=== PATIENT | female | born 1950 | race Caucasian/White ===

== ENCOUNTER → 2016-09-15 | Outpatient (REF) | payer MEDICARE, MEDICAID ==
[2016-09-15 16:53] LABS: ALBUMIN 3.8 GM/DL (3.2-5.2); ALBUMIN/GLOBULIN RATIO 1.15 (1.00-1.93); ALKALINE PHOSPHATASE 76 U/L (45-117); ALT/SGPT 15 U/L (12-78); ANION GAP 5 MEQ/L (8-16); AST/SGOT 11 U/L (15-37); BILIRUBIN,TOTAL 0.3 MG/DL (0.2-1.0); BLOOD UREA NITROGEN 11 MG/DL (7-18); CALCIUM LEVEL 8.6 MG/DL (8.8-10.2); CARBON DIOXIDE LEVEL 28 MEQ/L (21-32); CHLORIDE LEVEL 106 MEQ/L (98-107); CHOLESTEROL LEVEL 178 MG/DL (<200); CREATININE FOR GFR 0.66 MG/DL (0.55-1.02); GLOMERULAR FILTRATION RATE > 60.0 (>45); GLUCOSE, FASTING 110 MG/DL (80-110); POTASSIUM SERUM 3.8 MEQ/L (3.5-5.1); SODIUM LEVEL 139 MEQ/L (136-145); TOTAL PROTEIN 7.1 GM/DL (6.4-8.2); TRIGLYCERIDES LEVEL 83 MG/DL (<150)
== END ==
LOC: M SFHCPLAZ 13:01
PROVIDERS: ATTEND Family Medicine
DX: E11.65 Type 2 diabetes mellitus with hyperglycemia (principal); E78.5 Hyperlipidemia, unspecified; I10 Essential (primary) hypertension; E03.9 Hypothyroidism, unspecified
CPT/HCPCS: 36415; 80053; 80061; 83036; 84443; G0463

== ENCOUNTER → 2016-12-08 | Outpatient (CLI) | payer MEDICARE, MEDICAID ==
[2016-12-08 14:04] LABS: ANION GAP 8 MEQ/L (8-16); BLOOD UREA NITROGEN 13 MG/DL (7-18); CARBON DIOXIDE LEVEL 27 MEQ/L (21-32); CHLORIDE LEVEL 100 MEQ/L (98-107); CREATININE FOR GFR 0.87 MG/DL (0.55-1.02); GLOMERULAR FILTRATION RATE > 60.0 (>45); POTASSIUM SERUM 4.9 MEQ/L (3.5-5.1); SODIUM LEVEL 135 MEQ/L (136-145)
[2016-12-08 14:23] LABS: GLUCOSE, FASTING 459 MG/DL (80-110)
== END ==
LOC: M WUC 12:03
PROVIDERS: ATTEND Internal Medicine Endocrinology, Diabetes & Metabolism
DX: E10.9 Type 1 diabetes mellitus without complications (principal); E03.9 Hypothyroidism, unspecified; I10 Essential (primary) hypertension

== ENCOUNTER → 2017-02-20 | Outpatient (CLI) | payer MEDICARE, MEDICAID ==
--- NOTE | 2017-02-20 13:40 | REP ---
Left shoulder two views: There is a humeral head fracture at the base of the humeral tuberosities. I suspect there is a cyst in the proximal shaft of the humerus. There is no dislocation. The acromioclavicular joint is unremarkable. Signed by Tom Linton MD 02/20/2017 01:31 P
== END ==
LOC: M WUC 12:50
PROVIDERS: ATTEND Physician Assistant
DX: S40.012A Contusion of left shoulder, initial encounter (principal); S40.022A Contusion of left upper arm, initial encounter; S50.02XA Contusion of left elbow, initial encounter; X58.XXXA Exposure to other specified factors, initial encounter; Y92.89 Other specified places as the place of occurrence of the external cause; Y99.9 Unspecified external cause status; Y93.9 Activity, unspecified

== ENCOUNTER → 2017-03-25 | Outpatient (CLI) | payer MEDICARE, MEDICAID ==
[~2017-03-25] MED LIST: PROHANCE 279.3MG/ML 15ML VIAL (A9576) As Ordered ONE; PROHANCE 279.3MG/ML 5ML VIAL (A9576) As Ordered ONE
--- NOTE | 2017-03-25 18:36 | REP ---
MRA CAROTIDS WITHOUT AND WITH CONTRAST: HISTORY: Carotid stenosis. CONTRAST: ProHance 25 mL Unenhanced 3D TOF and contrast enhanced MR angiography were performed at the level of the carotid bifurcations. There is mild stenosis of 10% of the right internal carotid artery 6 mm from its origin. The origin of the right external carotid artery is normal. There is moderate stenosis of 65% of the left internal carotid artery at its origin. The origin of the left external carotid artery is normal. The vertebral arteries are equal in size and patent. IMPRESSION: 1. Mild stenosis of 10% of the right internal carotid artery at its origin. 2. Moderate stenosis of 65% of the left internal carotid artery at its origin. Signed by Rob Rodriguez MD 03/26/2017 08:29 A
== END ==
LOC: M RAD 10:57
PROVIDERS: ATTEND Surgery Vascular Surgery
DX: I65.23 Occlusion and stenosis of bilateral carotid arteries (principal)
CPT/HCPCS: 70549; A9576

== ENCOUNTER → 2017-05-05 | Outpatient (CLI) | payer MEDICARE, MEDICAID ==
--- NOTE | 2017-05-06 14:34 | REP ---
Clinical: Lung screening. History smoking. Comparison: None Technique: Axial low-dose noncontrast images from the thoracic inlet to the upper abdomen using lung screening technique. Findings: The lung reid are well-aerated. Biapical scarring, fibro atelectatic changes and moderate emphysematous changes are appreciated. No discrete consolidation, obvious focal nodule or mass lesion is identified. No pleural effusion/reaction or pneumothorax. Tracheobronchial tree is patent. Impression: Biapical and upper lobe changes as described above. No obvious pulmonary nodule or mass lesion is appreciated. Reevaluation and continued follow-up should be based on consultation with [employer]. Signed by Kyle Fournier MD 05/06/2017 01:52 A
== END ==
LOC: M RAD 10:32
PROVIDERS: ATTEND Family Medicine
DX: Z12.2 Encounter for screening for malignant neoplasm of respiratory organs (principal); F17.210 Nicotine dependence, cigarettes, uncomplicated

== ENCOUNTER → 2017-12-01 | Outpatient (REF) | payer MEDICARE, OTHER | LOC: M LAB REF 11:06 | DX: N39.0 Urinary tract infection, site not specified (principal) | CPT/HCPCS: 87186 ==

== ENCOUNTER → 2019-01-11 | Outpatient (CLI) | payer MEDICARE, MEDICAID ==
--- NOTE | 2019-01-11 15:48 | REPMRS ---
Patient History The patient states she has not had a clinical breast exam in over a year. Family history of breast cancer in maternal grandmother. 3D TOMOSYNTHESIS WAS PERFORMED. [facility] lifetime risk for [facility] cancer [facility] 3.4%. Digital Woman Screen Mammo: January 11, 2019 - Exam #: [id number] Bilateral CC and MLO view(s) were taken. Technologist: Marah Still, Technologist Prior study comparison: March 27, 2015, digital woman screen mammo performed at [facility]. August 17, 2013, digital woman screen mammo performed at [facility]. FINDINGS: There are scattered fibroglandular densities. There has been no change in the appearance of the mammogram from the prior studies. There is a mild amount of residual fibroglandular tissue which is fairly symmetric. There is no interval development of dominant mass, architectural distortion, or clustered microcalcification suggestive of malignancy. Assessment: BI-RADS/ACR category 1 mammogram. Negative Mammogram. Recommendation Routine screening mammogram in 1 year (for women over age 40). This mammogram was interpreted with the aid of an FDA-approved computer-aided dectection system. Electronically Signed By: Tom Thornton MD 01/11/19 [id number]
== END ==
LOC: M WHC 14:24
PROVIDERS: ATTEND Family Medicine
DX: Z12.31 Encounter for screening mammogram for malignant neoplasm of breast (principal)

== ENCOUNTER → 2019-10-13 | Outpatient (REF) | payer MEDICARE, MEDICAID ==
[2019-10-13 14:03] LABS: BLOOD UREA NITROGEN 17 MG/DL (7-18); CARBON DIOXIDE LEVEL 28 MEQ/L (21-32); CHLORIDE LEVEL 104 MEQ/L (98-107); CREATININE FOR GFR 0.82 MG/DL (0.55-1.30); GLOMERULAR FILTRATION RATE > 60.0 (>45); GLUCOSE, FASTING 195 MG/DL (70-100); POTASSIUM SERUM 4.4 MEQ/L (3.5-5.1); SODIUM LEVEL 141 MEQ/L (136-145)
== END ==
LOC: M SFHCPLAZ 10:47
PROVIDERS: ATTEND Family Medicine
DX: M81.0 Age-related osteoporosis without current pathological fracture (principal)

== ENCOUNTER → 2020-03-06 | Outpatient (REF) | payer MEDICARE, MEDICAID | LOC: M WUC 15:09 | PROVIDERS: ATTEND Nurse Practitioner Family | DX: N39.0 Urinary tract infection, site not specified (principal) ==

== ENCOUNTER → 2020-03-21 | Outpatient (REF) | payer MEDICARE, MEDICAID | LOC: M SFHCPLAZ 12:34 | PROVIDERS: ATTEND Family Medicine | DX: M81.0 Age-related osteoporosis without current pathological fracture (principal); E03.9 Hypothyroidism, unspecified ==

== ENCOUNTER → 2020-03-21 | Outpatient (CLI) | payer MEDICARE, MEDICAID ==
[2020-03-21 11:57] LABS: BLOOD UREA NITROGEN 9 MG/DL (7-18); CALCIUM LEVEL 9.7 MG/DL (8.8-10.2); CARBON DIOXIDE LEVEL 30 MEQ/L (21-32); CHLORIDE LEVEL 104 MEQ/L (98-107); CREATININE FOR GFR 0.74 MG/DL (0.55-1.30); FREE T4 1.55 NG/DL (0.76-1.46); GLOMERULAR FILTRATION RATE > 60.0 (>39); GLUCOSE, FASTING 117 MG/DL (70-100); PHOSPHORUS LEVEL 3.1 MG/DL (2.5-4.9); POTASSIUM SERUM 4.5 MEQ/L (3.5-5.1); SODIUM LEVEL 138 MEQ/L (136-145)
== END ==
LOC: M PLALAB 08:49
PROVIDERS: ATTEND Family Medicine
DX: M81.0 Age-related osteoporosis without current pathological fracture (principal); E03.9 Hypothyroidism, unspecified; Z23 Encounter for immunization
CPT/HCPCS: 36415; 80048; 83735; 84100; 84439; 84443; 90682; G0008; G0463

== ENCOUNTER → 2020-10-03 | Outpatient (CLI) | payer MEDICARE, MEDICAID ==
--- NOTE | 2020-10-03 10:46 | REPPI ---
INDICATION: M25.552 PAIN IN LEFT HIP COMPARISON: None. TECHNIQUE: AP and frog-lateral views of the left hip FINDINGS: Generalized age-related changes include subtle increased sclerosis to the acetabulum with minimal joint space narrowing. No further overt osteoarthritic or significant degenerative changes are appreciated. No evidence for acute or healed injury. Surrounding soft tissues are normal. IMPRESSION: Mild generalized age-related changes. <Electronically signed by Kyle Fournier > 10/03/20 104
== END ==
LOC: M PLAIMG 09:56
PROVIDERS: ATTEND Family Medicine
DX: M25.552 Pain in left hip (principal)
CPT/HCPCS: 73502; G0463

== ENCOUNTER → 2020-10-10 | Outpatient (CLI) | payer MEDICARE, MEDICAID ==
--- NOTE | 2020-10-10 10:27 | REP ---
INDICATION: ENCOUNTER FOR SCREENING FOR LUNG CA. COMPARISON: Comparison study May 05, 2017.. TECHNIQUE: Dose reduction was performed utilizing CARE dose with automated adjustment of the kV and MAS according to patient size; iterative reconstruction, automated exposure control, as well as adaptive dose shielding. Helical scanning is acquired and 3 mm axial images are generated at lung windows. FINDINGS: There is moderate biapical pleuroparenchymal fibrosis and bilateral upper lobe emphysematous change again noted. There is a stable 3 mm nodule adjacent to the posterolateral pleural surface of the right lower lobe. This is seen on page 45 of 107 today's study. This is felt to be unchanged allowing for slight differences in slice position. No new nodule or pulmonary mass lesion is appreciated. No infiltrate is seen. There is some vascular calcification. A small sliding hiatal hernia is seen. IMPRESSION: Lung RADS category 1 findings. Repeat screening study recommended in 1 year. <Electronically signed by Preet Vega > 10/10/20 1024
== END ==
LOC: M RAD 09:51
PROVIDERS: ATTEND Family Medicine
DX: Z12.2 Encounter for screening for malignant neoplasm of respiratory organs (principal); R91.1 Solitary pulmonary nodule; K44.9 Diaphragmatic hernia without obstruction or gangrene; F17.210 Nicotine dependence, cigarettes, uncomplicated

== ENCOUNTER → 2020-10-17 | Outpatient (CLI) | payer MEDICARE, MEDICAID ==
--- NOTE | 2020-10-17 10:42 | DEXAMM ---
INDICATION: M81.0 AGE RELATED OSTEOPOROSIS. COMPARISON: 10/31/2015 as well as other prior exams. TECHNIQUE: Bone density was measured using dual-energy x-ray absorptiometry (DEXA). FINDINGS: AP SPINE L1-L4 BMD 0.829 g/cm2 Young Adult T-Score -2.9 Age Matched Z-Score -1.3. LT FEMUR, TOTAL BMD 0.671 g/cm2 Young Adult T-Score -2.7 Age Matched Z-Score -1.2. LT NECK BMD 0.675 g/cm2 Young Adult T-Score -2.6 Age Matched Z-Score -0.9. RT FEMUR, TOTAL BMD 0.688 g/cm2 Young Adult T-Score -2.5 Age Matched Z-Score -1.0. RT NECK BMD 0.631 g/cm2 Young Adult T-Score -2.9 Age Matched Z-Score -1.2. IMPRESSION: There is osteoporosis of the spine. There is osteoporosis of the left hip. There is osteoporosis of the right hip. The density of the spine has increased 11.7% since the initial exam on 11/11/2006. The density of the spine increased 5.2% since most recent exam on 10/31/2015. The density of the left hip has not changed since initial exam on 11/11/2006. The density of the left hip has increased 3.1% since most recent exam on 10/31/2015. The density of the right hip has increased 2.2% since the initial exam on 11/11/2006. The density of the right hip has increased 5.2% since the most recent exam on 10/31/2015. FOLLOW-UP: Recommendation for the next bone density exam: 2 years. <Electronically signed by Tom Thornton > 10/17/20 1038
== END ==
LOC: M WHC 09:08
PROVIDERS: ATTEND Internal Medicine Endocrinology, Diabetes & Metabolism
DX: M81.0 Age-related osteoporosis without current pathological fracture (principal)

== ENCOUNTER → 2021-03-09 | Outpatient (CLI) | payer MEDICARE, MEDICAID ==
[~2021-03-09] MED LIST changes: +BUPR150T12 PO; +CLOP75TA2 PO; +ICOS1CAP PO; +LEVO112T2 PO; +LISI-898 PO; -PROHANCE 279.3MG/ML 15ML VIAL (A9576) As Ordered ONE; -PROHANCE 279.3MG/ML 5ML VIAL (A9576) As Ordered ONE; +ROSU40TA4 PO; +TOUJ1.2I SC
== END ==
LOC: M LABSMTC 11:14
PROVIDERS: ATTEND Anesthesiology
DX: Z01.812 Encounter for preprocedural laboratory examination (principal); Z20.822 Contact with and (suspected) exposure to COVID-19

== ENCOUNTER 2021-03-14 06:58 | Day surgery (SDC) | payer MEDICARE, MEDICAID ==
[~2021-03-14] VITALS: Ht 152.4 cm; Wt 60.3 kg
[~2021-03-14 06:58] MED LIST changes: +NS 1,000 ML IV ONE
--- OUTSIDE RECORDS SUMMARY | 2021-03-14 07:03 | CCD | Continuity of Care Document ---
Author Author [facility] Organization Unknown Address [address] [place] [id number] Phone Unavailable Care Team Providers [employer] Name Role Phone Kyle Licona M.D. [employer] [phone] Jayjay Roman M.D. [employer] [phone] Meenakshi Hair M.D. [employer] Problems Active Problems Provider Date Essential hypertension Joel Lucas M.D. Onset: 7 Hyperlipidemia Joel Lucas M.D. Onset: 03/10/2017 Carotid artery occlusion Joel Lucas M.D. Onset: 017 Social History Type Date Description Comments Sex Unknown Tobacco Use Reviewed: 02/17/19 currently smokes 1/2 Pack [place] Smoking Status Reviewed: 02/17/19 currently smokes 1/2 Pack [place] ETOH Use Occasionally consumes alcohol Tobacco Use Reviewed: 01/07/19 Patient is a current smoker, smokes every day Allergies and adverse reactions Active Allergies Criticality Reaction | Severity Comments Date Lipitor Unable to assess criticality myalgia 03/11/2017 Penicillin Unable to assess criticality sob 03/11/2017 Bee Sting Unable to assess criticality Anaphylaxis 03/11/2017 Seafood Unable to assess criticality sob 03/11/2017 Medications Active Medications SIG Qnty Indications Ordering Provide r Date Plavix 75mg Tablets take 1 tablet by mouth every day 90tabs Joel Lucas M.D. 11/19/2018 Vitamin D 2000Unit Tablets 1 by mouth every day Unknown Calcium/Magnesium/Zinc Tablets qd Unknown Cranberry qd Unknown Acetaminophen 325mg Tablets p rn Unknown Hair/Skin/Nails Capsules qd Unknown Vitamin E qd Unknown Prolia 60mg/ml Solution sq every six months Unknown Colace 100mg Capsules qd Unknown Bupropion HCL ER (XL) 150mg Tablets ER 24HR every day Unknown Lisinopril 2.5mg Tablets qd Unknown Humalog 100Unit/ML Solution s s Unknown Folic Acid 1mg Tablets 1 by mouth every day Unknown Aspir-[address] 1 by mouth every day Unknown Rosuvastatin Calcium 40mg Tablets take 1 tablet by mouth at bedtime Unknown Levothyroxine Sodium 112mcg Tablets qd Unknown Toujeo Solostar 300U nit/ML Solution Pen-Inject as directed Unknown Immunizations CPT Code Status Date Vaccine Lot # [id number] Given 02/19/2017 Zoster Shingles Vaccine For Subcutaneous Injection [id number] Given 02/18/2017 Pneumococcal Vaccine 2Yrs Or Older Vital Signs Date Vital Result Comment 03/06/2021 10:37am BP Systolic Right Arm 138 mmHg BP Diastolic Right Arm 68 mmHg BP Systolic Left Arm 130 mmHg BP Diastolic Left Arm 68 mmHg Body Temperature 94.3 F Height 56 inches 4'8" Weight 132.00 lb Weight 59.875 kg BMI (Body Mass Index) 29.6 kg/m2 02/28/2020 2:48pm BP Systolic Right Arm 160 mmHg BP Diastolic Right Arm 70 mmHg Height 60 inches 5'0" Weight 127.00 lb Weight 57.607 kg BMI (Body Mass Index) 24.8 kg/m2 Results Description No Information Available Procedures Date Code Description Status 03/06/2021 00311 Duplex Scan Extracranial Arterie s, Complete Bilateral Study Completed Medical Devices Description No Information Available Encounters Description No Information Available Assessments Date Code Description Provider 03/06/2021 I65.23 Occlusion and stenosis of bilate ral carotid arteries Joel Lucas M.D. 03/06/2021 I65.23 Occlusion and stenosis of bilate ral carotid arteries [facility] 03/06/2021 Z48.812 Encounter for surgic al aftercare following surgery on the circulatory system Joel Lucas M.D. 03/06/2021 Z48.812 Encounter for surgic al aftercare following surgery on the circulatory system [facility] Plan of Treatment Future Appointment(s):* 03/13/2022 11:00 am - Joel Lucas M.D. at Main Office * 03/13/2022 10:30 am - [facility] at Main Office 02/17/2019 - Joel Lucas M.D.* I65.22 Occlusion and stenosis of left carotid artery * Z48.812 Encntr for surgical aftcr following surgery on the circ sys * I10 Essential (primary) hypertension * * Follow up:* 6 MONTH OV/US/ CAROTID LEFT/ Functional Status Description No Information Available Mental Status Description No Information Available Referrals Description No Information Available
--- OUTSIDE RECORDS SUMMARY | 2021-03-14 07:04 | CCD ---
Author Author [facility] Organization [facility] Address Unknown Phone Unavailable Care Team Providers Care Milk Route Deliverer Name Role Phone Garces, Kalyn 1 YEAR OLDS PRESCHOOL TEACHER Unavailable Unavailable Garces, Kalyn 2 YEAR OLDS PRESCHOOL TEACHER Unavailable Unavailable Garces, Kalyn 2 YEAR OLDS PRESCHOOL TEACHER Unavailable Unavailable Garces, Kalyn 2 YEAR OLDS PRESCHOOL TEACHER Unavailable Unavailable Garces, Kalyn 2 YEAR OLDS PRESCHOOL TEACHER Unavailable Unavailable Garces, Kalyn 2 YEAR OLDS PRESCHOOL TEACHER Unavailable Unavailable Garces, Kalyn 2 YEAR OLDS PRESCHOOL TEACHER Unavailable Unavailable Garces, Kalyn 2 YEAR OLDS PRESCHOOL TEACHER Unavailable Unavailable Garces, Kalyn 2 YEAR OLDS PRESCHOOL TEACHER Unavailable Unavailable Garces, Kalyn 2 YEAR OLDS PRESCHOOL TEACHER Unavailable Unavailable Garces, Kalyn 2 YEAR OLDS PRESCHOOL TEACHER Unavailable Unavailable Garces, Kalyn 2 YEAR OLDS PRESCHOOL TEACHER Unavailable Unavailable Garces, Kalyn 2 YEAR OLDS PRESCHOOL TEACHER Unavailable Unavailable Simione-Albino, Carol PA Unavailable Unavailable Simione-Albino, Carol PA Unavailable Unavailable Simione-Albino, Carol PA Unavailable Unavailable Simione-Albino, Carol PA Unavailable Unavailable Simione-Albino, Carol PA Unavailable Unavailable Simione-Albino, Carol PA Unavailable Unavailable Simione-Albino, Carol PA Unavailable Unavailable Simione-Albino, Carol PA Unavailable Unavailable Simione-Albino, Carol PA Unavailable Unavailable Simione-Albino, Carol PA Unavailable Unavailable Simione-Albino, Carol PA Unavailable Unavailable Simione-Albino, Carol PA Unavailable Unavailable Simione-Albino, Carol PA Unavailable Unavailable Simione-Albino, Carol PA Unavailable Unavailable Simione-Albino, Carol PA Unavailable Unavailable Simione-Albino, Carol PA Unavailable Unavailable Simione-Albino, Carol PA Unavailable Unavailable Simione-Albino, Carol PA Unavailable Unavailable Simione-Albino, Carol PA Unavailable Unavailable Simione-Albino, Carol PA Unavailable Unavailable Simione-Albino, Carol PA Unavailable Unavailable Simione-Albino, Carol PA Unavailable Unavailable Simione-Albino, Carol PA Unavailable Unavailable Simione-Albino, Carol PA Unavailable Unavailable Simione-Albino, Carol PA Unavailable Unavailable Simione-Albino, Carol PA Unavailable Unavailable Simione-Albino, Carol PA Unavailable Unavailable Simione-Albino, Carol PA Unavailable Unavailable Simione-Albino, Carol PA Unavailable Unavailable Simione-Albino, Carol PA Unavailable Unavailable Simione-Albino, Carol PA Unavailable Unavailable Simione-Albino, Carol PA Unavailable Unavailable Simione-Albino, Carol PA Unavailable Unavailable Afsaneh FREITAS MD Unavailable Unavailable GENAfsaneh ARANDA MD Unavailable Unavailable GENAfsaneh ARANDA MD Unavailable Unavailable GENAfsaneh ARANDA MD Unavailable Unavailable GENAfsaneh ARANDA MD Unavailable Unavailable GENAfsaneh ARANDA MD Unavailable Unavailable GENAfsaneh ARANDA MD Unavailable Unavailable GENAfsaneh ARANDA MD Unavailable Unavailable Afsaneh FREITAS MD Unavailable Unavailable Afsaneh FREITAS MD Unavailable Unavailable Afsaneh FREITAS MD Unavailable Unavailable GENAfsaneh ARANDA MD Unavailable Unavailable Afsaneh FREITAS MD Unavailable Unavailable Afsaneh FREITAS MD Unavailable Unavailable Afsaneh FREITAS MD Unavailable Unavailable GENAfsaneh ARANDA MD Unavailable Unavailable GENAfsaneh ARANDA MD Unavailable Unavailable Afsaneh FREITAS MD Unavailable Unavailable Afsaneh FREITAS MD Unavailable Unavailable Afsaneh FREITAS MD Unavailable Unavailable Afsaneh FREITAS MD Unavailable Unavailable Afsaneh FREITAS MD Unavailable Unavailable Afsaneh FREITAS MD Unavailable Unavailable Afsaneh FREITAS MD Unavailable Unavailable Afsaneh FREITAS MD Unavailable Unavailable Afsaneh FREITAS MD Unavailable Unavailable GENDZIXIAO, Afsaneh LIU MD Unavailable Unavailable GENDZIXIAO, Afsaneh LIU MD Unavailable Unavailable GENDZIXIAO, Afsaneh LIU MD Unavailable Unavailable GENDZIXIAO, Afsaneh LIU MD Unavailable Unavailable GENDZIXIAO, Afsaneh LIU MD Unavailable Unavailable GENDZIXIAO, Afsaneh LIU MD Unavailable Unavailable GENDZIXIAO, Afsaneh LIU MD Unavailable Unavailable GENDZIXIAO, Afsaneh LIU MD Unavailable Unavailable GENDZIXIAO, Afsaneh LIU MD Unavailable Unavailable GENDZIXIAO, Afsaneh LIU MD Unavailable Unavailable GENDZIXIAO, Afsaneh LIU MD Unavailable Unavailable GENDZIXIAO, Afsaneh LIU MD Unavailable Unavailable GENDZIXIAO, Afsaneh LIU MD Unavailable Unavailable GENDZIXIAO, Afsaneh LIU MD Unavailable Unavailable GENDZIXIAO, Afsaneh LIU MD Unavailable Unavailable GENDZIXIAO, Afsaneh LIU MD Unavailable Unavailable GENDZIXIAO, Afsaneh LIU MD Unavailable Unavailable GENDZIXIAO, Afsaneh LIU MD Unavailable Unavailable GENDZIXIAO, Afsaneh LIU MD Unavailable Unavailable GENDZIXIAO, Afsaneh LIU MD Unavailable Unavailable GENDZIXIAO, Afsaneh LIU MD Unavailable Unavailable GENDDAVID, Afsaneh LIU MD Unavailable Unavailable GENDZIXIAO, Afsaneh LIU MD Unavailable Unavailable GENDZIXIAO, Afsaneh LIU MD Unavailable Unavailable GENDDAVID, Afsaneh LIU MD Unavailable Unavailable GENDZIXIAO, Afsaneh LIU MD Unavailable Unavailable GENDAfsaneh HERNANDEZ MD Unavailable Unavailable GENDAfsaneh HERNANDEZ MD Unavailable Unavailable GENDZIAfsaneh HAGEN MD Unavailable Unavailable GENDAfsaneh HERNANDEZ MD Unavailable Unavailable GENDZIAfsaneh HAGEN MD Unavailable Unavailable GENDAfsaneh HERNANDEZ MD Unavailable Unavailable GENDZIAfsaneh HAGEN MD Unavailable Unavailable GENDZIAfsaneh HAGEN MD Unavailable Unavailable GENDZIAfsaneh HAGEN MD Unavailable Unavailable GENDZIAfsaneh HAGEN MD Unavailable Unavailable GENDZIAfsaneh HAGEN MD Unavailable Unavailable GENDZIAfsaneh HAGEN MD Unavailable Unavailable GENDZIELEАННА, Afsaneh LIU MD Unavailable Unavailable GENDZIELEАННА, Afsaneh LIU MD Unavailable Unavailable GENDZIELEАННА, Afsaneh LIU MD Unavailable Unavailable GENDZIELEАННА, Afsaneh LIU MD Unavailable Unavailable GENDZIELEАННА, Afsaneh LIU MD Unavailable Unavailable GENDZIELEАННА, Afsaneh LIU MD Unavailable Unavailable GENDZIELEАННА, Afsaneh LIU MD Unavailable Unavailable GENDZIELEАННА, Afsaneh LIU MD Unavailable Unavailable GENDZIELEАННА, Afsaneh LIU MD Unavailable Unavailable GENDZIELEАННА, Afsaneh LIU MD Unavailable Unavailable GENDZIELEАННА, Afsaneh LIU MD Unavailable Unavailable GENDZIXIAO, Afsaneh LIU MD Unavailable Unavailable GENDZIELEАННА, Afsaneh LIU MD Unavailable Unavailable GENDZIELEАННА, Afsaneh LIU MD Unavailable Unavailable GENDZIXIAO, Afsaneh LIU MD Unavailable Unavailable GENDZIXIAO, Afsaneh LIU MD Unavailable Unavailable GENDZIXIAO, Afsaneh LIU MD Unavailable Unavailable GENDZIXIAO, Afsaneh LIU MD Unavailable Unavailable GENDZIELEАННА, Afsaneh LIU MD Unavailable Unavailable GENDZIELEАННА, Afsaneh LIU MD Unavailable Unavailable GENDZIXIAO, Afsaneh LIU MD Unavailable Unavailable PRITESH, MCKINLEY PA Unavailable Unavailable PRITESH, MCKINLEY PA Unavailable Unavailable PRITESH, MCKINLEY PA Unavailable Unavailable PRITESH, MCKINLEY PA Unavailable Unavailable PRITESH, MCKINLEY PA Unavailable Unavailable PRITESH, MCKINLEY PA Unavailable Unavailable PRITESH, MCKINLEY PA Unavailable Unavailable PRITESH, MCKINLEY PA Unavailable Unavailable PRITESH, MCKINLEY PA Unavailable Unavailable PRITESH, MCKINLEY PA Unavailable Unavailable PRITESH, MCKINLEY PA Unavailable Unavailable PRITESH, MCKINLEY PA Unavailable Unavailable PRITESH, MCKINLEY PA Unavailable Unavailable PRITESH, MCKINLEY PA Unavailable Unavailable PRITESH, MCKINLEY PA Unavailable Unavailable PRITESH, MCKINLEY PA Unavailable Unavailable PRITESH, MCKINLEY PA Unavailable Unavailable PRITESH, MCKINLEY PA Unavailable Unavailable PRITESH, MCKINLEY PA Unavailable Unavailable PRITESH, MCKINLEY PA Unavailable Unavailable PRITESH, MCKINLEY PA Unavailable Unavailable PRITESH, MCKINLEY PA Unavailable Unavailable PRITESH, MCKINLEY PA Unavailable Unavailable PRITESH, MCKINLEY PA Unavailable Unavailable PRITESH, MCKINLEY PA Unavailable Unavailable PRITESH, MCKINLEY PA Unavailable Unavailable PRITESH, MCKINLEY PA Unavailable Unavailable PRITESH, MCKINLEY PA Unavailable Unavailable PRITESH, MCKINLEY PA Unavailable Unavailable PRITESH, MCKINLEY PA Unavailable Unavailable PRITESH, MCKNILEY PA Unavailable Unavailable PRITESH, MCKINLEY PA Unavailable Unavailable PRITESH, MCKINLEY PA Unavailable Unavailable PRITESH, MCKINLEY PA Unavailable Unavailable PRITESH, MCKINLEY PA Unavailable Unavailable PRITESH, MCKINLEY PA Unavailable Unavailable Simione-Albino, Carol PA Unavailable Unavailable Simione-Albino, Carol PA Unavailable Unavailable Simione-Albino, Carol PA Unavailable Unavailable Simione-Albino, Carol PA Unavailable Unavailable Simione-Albino, Carol PA Unavailable Unavailable Simione-Albino, Carol PA Unavailable Unavailable Simione-Albino, Carol PA Unavailable Unavailable Simione-Albino, Carol PA Unavailable Unavailable Simione-Albino, Carol PA Unavailable Unavailable Simione-Albino, Carol PA Unavailable Unavailable Simione-Albino, Carol PA Unavailable Unavailable Simione-Albino, Carol PA Unavailable Unavailable Simione-Albino, Carol PA Unavailable Unavailable Simione-Albino, Carol PA Unavailable Unavailable Simione-Albino, Carol PA Unavailable Unavailable Simione-Albino, Carol PA Unavailable Unavailable Simione-Albino, Carol PA Unavailable Unavailable Simione-Albino, Carol PA Unavailable Unavailable Simione-Albino, Carol PA Unavailable Unavailable Simione-Albino, Carol PA Unavailable Unavailable Simione-Albino, Carol PA Unavailable Unavailable Simione-Albino, Carol PA Unavailable Unavailable Simione-Albino, Carol PA Unavailable Unavailable Simione-Albino, Carol PA Unavailable Unavailable Simione-Albino, Carol PA Unavailable Unavailable Simione-Albino, Carol PA Unavailable Unavailable Simione-Albino, Carol PA Unavailable Unavailable Simione-Albino, Carol PA Unavailable Unavailable Simione-Albino, Carol PA Unavailable Unavailable Simione-Albino, Carol PA Unavailable Unavailable Simione-Albino, Carol PA Unavailable Unavailable Simione-Albino, Carol PA Unavailable Unavailable Simione-Albino, Carol PA Unavailable Unavailable Dai Orosco MD Unavailable Unavailable Dai Orosco MD Unavailable Unavailable Dai Orosco MD Unavailable Unavailable Dai Orosco MD Unavailable Unavailable Dai Orosco MD Unavailable Unavailable Dai Orosco MD Unavailable Unavailable Dai Orosco MD Unavailable Unavailable Dai Orosco MD Unavailable Unavailable Dai Orosco MD Unavailable Unavailable Dai Orosco MD Unavailable Unavailable Dai Orosco MD Unavailable Unavailable Dai Orosco MD Unavailable Unavailable Dai Orosco MD Unavailable Unavailable Dai Orosco MD Unavailable Unavailable Dai Orosco MD Unavailable Unavailable Dai Orosco MD Unavailable Unavailable Dai Orosco MD Unavailable Unavailable Dai Orosco MD Unavailable Unavailable Dai Orosco MD Unavailable Unavailable Dai Orosco MD Unavailable Unavailable Dai Orosco MD Unavailable Unavailable Dai Orosco MD Unavailable Unavailable Dai Orosco MD Unavailable Unavailable Dai Orosco MD Unavailable Unavailable Dai Orosco MD Unavailable Unavailable Dai Orosco MD Unavailable Unavailable Dai Orosco MD Unavailable Unavailable Dai Orosco MD Unavailable Unavailable Dai Orosco MD Unavailable Unavailable Dai Orosco MD Unavailable Unavailable Dai Orosco MD Unavailable Unavailable Dai Orosco MD Unavailable Unavailable Dai Orosco MD Unavailable Unavailable Dai Orosco MD Unavailable Unavailable Dai Orosco MD Unavailable Unavailable Dai Orosco MD Unavailable Unavailable Dai Orosco MD Unavailable Unavailable Dai Orosco MD Unavailable Unavailable Dai Orosco MD Unavailable Unavailable Dai Orosco MD Unavailable Unavailable Dai Orosco MD Unavailable Unavailable Dai Orosco MD Unavailable Unavailable Dai Orosco MD Unavailable Unavailable Dai Orosco MD Unavailable Unavailable Dai Orosco MD Unavailable Unavailable Dai Orosco MD Unavailable Unavailable Dai Orosco MD Unavailable Unavailable Dai Orosco MD Unavailable Unavailable Dai Orosco MD Unavailable Unavailable Dai Orosco MD Unavailable Unavailable Dai Orosco MD Unavailable Unavailable Dai Orosco MD Unavailable Unavailable Dai Orosco MD Unavailable Unavailable Dai Orosco MD Unavailable Unavailable Dai Orosco MD Unavailable Unavailable Dai Orosco MD Unavailable Unavailable Dai Orosco MD Unavailable Unavailable Dai Orosco MD Unavailable Unavailable Re-disclosure Warning The records that you are about to access may contain information from federally-assisted alcohol or drug abuse programs. If such information is present, then the following federally mandated warning applies: This information has been disclosed to you from records protected by federal confidentiality rules (42 CFR part 2). The federal rules prohibit you from making any further disclosure of this information unless further disclosure is expressly permitted by the written consent of the person to whom it pertains or as otherwise permitted by 42 CFR part 2. A general authorization for the release of medical or other information is NOT sufficient for this purpose. The Federal rules restrict any use of the information to criminally investigate or prosecute any alcohol or drug abuse patient.The records that you are about to access may contain highly sensitive health information, the redisclosure of which is protected by Article 27-F of the [facility] Public Health law. If you continue you may have access to information: Regarding HIV / AIDS; Provided by facilities licensed or operated by the [facility] Office of Mental Health; or Provided by the [facility] Office for People With Developmental Disabilities. If such information is present, then the following [facility] mandated warning applies: This information has been disclosed to you from confidential records which are protected by state law. State law prohibits you from making any further disclosure of this information without the specific written consent of the person to whom it pertains, or as otherwise permitted by law. Any unauthorized further disclosure in violation of state law may result in a fine or residential sentence or both. A general authorization for the release of medical or other information is NOT sufficient authorization for further disc losure. Family History Family Member Name Family Member Gender Family Member Status Date o f Status Description Data Source(s) Unknown Unknown Problem MEDENT ([facility]) mother Unknown Male Problem MEDENT ([facility]) Unknown Male Problem MEDENT ([facility]) Unknown Unknown Problem MEDENT ([facility], ) Unknown Unknown Problem MEDENT ([facility], ) Encounters Encounter Providers Location Date Indications Data Source(s ) Outpatient Attender: Carol PEÑALOZA [email or web address] N 02/18/2021 12:00:00 AM EDT - 02/18/2021 11:33:11 AM EDT [facility] Outpatient Attender: Dai Orosco MDReferrer: Serge PEÑALOZA [email or web address] 01/23/2021 12:00:00 AM EDT - 01/23/2021 11:07:49 AM EDT [facility] [place] [address] [address] 12/03/2020 12:00:00 AM EDT eCW1 ([facility]) Outpatient Attender: NOE [email or web address] 11/21/2020 12:00:00 AM EDT - 11/21/2020 12:09:38 PM EDT [facility] Outpatient Attender: MCKINLEY sigala 11/10/2020 02:30:00 PM EDT MEDENT ([facility]) [place] [address] [facility] [address] 10/17/2020 12:00:00 AM EDT eCW1 ([facility]) [place] [address] [facility] [place] [address] 10/16/2020 12:00:00 AM EDT eCW1 ([facility]) [place] [address] [facility] [place] [address] 10/12/2020 12:00:00 AM EDT eCW1 ([facility]) [place] [address] [facility] [address] 10/12/2020 12:00:00 AM EDT eCW1 ([facility]) [place] [address] [facility] [place] [address] 10/10/2020 12:00:00 AM EDT eCW1 ([facility]) Outpatient Attender: Carol PEÑALOZA [email or web address] N 10/08/2020 12:00:00 AM EDT - 10/08/2020 11:34:56 AM EDT [facility] [place] [address] [facility] [address] 10/03/2020 12:00:00 AM EDT eCW1 ([facility]) [place] [address] [address] 10/01/2020 12:00:00 AM EDT eCW1 ([facility]) [place] [address] [facility] [place] [address] 05/28/2020 12:00:00 AM EST eCW1 ([facility]) [place] [address] [facility] [address] 04/03/2020 12:00:00 AM EST eCW1 ([facility]) [place] [address] [facility] [address] 03/21/2020 12:00:00 AM EST eCW1 ([facility]) Outpatient Attender: Kalyn call 03/06/2020 01:10:00 PM EDT MEDENT ([facility]) [place] [address] [facility] [address] 03/06/2020 12:00:00 AM EDT eCW1 ([facility]) [place] [address] [facility] [address] 03/06/2020 12:00:00 AM EDT eCW1 ([facility]) Unknown [address] [facility] [place] [address] 02/17/2020 12:00:00 AM EDT eCW1 ([facility]) Outpatient Attender: NOE FREITAS MD MOCAM-[email or web address] 02/07/2020 12:00:00 AM EDT - 02/07/2020 11:18:52 AM EDT [facility] Immunizations Vaccine Date Status Description Data Source(s) 10/17/2020 09:00:00 AM EDT completed e CW1 ([facility]) 10/17/2020 09:00:00 AM EDT completed e CW1 ([facility]) 10/17/2020 09:00:00 AM EDT completed e CW1 ([facility]) 10/17/2020 09:00:00 AM EDT completed e CW1 ([facility]) 10/17/2020 09:00:00 AM EDT completed e CW1 ([facility]) Moderna #2 dose COVID-19(given elsewhere) SARSCOV2 VAC 100MCG/0.5ML IM 08/15/2020 08:53:00 AM EDT completed eCW1 ([facility]) Moderna #2 dose COVID-19(given elsewhere) SARSCOV2 VAC 100MCG/0.5ML IM 08/15/2020 08:53:00 AM EDT completed eCW1 ([facility]) Moderna #2 dose COVID-19(given elsewhere) SARSCOV2 VAC 100MCG/0.5ML IM 08/15/2020 08:53:00 AM EDT completed eCW1 ([facility]) Moderna #2 dose COVID-19(given elsewhere) SARSCOV2 VAC 100MCG/0.5ML IM 08/15/2020 08:53:00 AM EDT completed eCW1 ([facility]) Moderna #2 dose COVID-19(given elsewhere) SARSCOV2 VAC 100MCG/0.5ML IM 08/15/2020 08:53:00 AM EDT completed eCW1 ([facility]) Moderna #2 dose COVID-19(given elsewhere) SARSCOV2 VAC 100MCG/0.5ML IM 08/15/2020 08:53:00 AM EDT completed eCW1 ([facility]) Moderna #2 dose COVID-19(given elsewhere) SARSCOV2 VAC 100MCG/0.5ML IM 08/15/2020 08:53:00 AM EDT completed eCW1 ([facility]) COVID-19 VACCINE Moderna 08/15/2020 12:00:00 AM EDT completed [employer] Vaccine Series Complete: YESThis Data wa s Submitted to [facility] Via [employer]. Moderna #1 dose COVID-19(given elsewhere) SARSCOV2 VAC 100MCG/0.5ML IM 07/14/2020 08:52:00 AM EST completed eCW1 ([facility]) Moderna #1 dose COVID-19(given elsewhere) SARSCOV2 VAC 100MCG/0.5ML IM 07/14/2020 08:52:00 AM EST completed eCW1 ([facility]) Moderna #1 dose COVID-19(given elsewhere) SARSCOV2 VAC 100MCG/0.5ML IM 07/14/2020 08:52:00 AM EST completed eCW1 ([facility]) Moderna #1 dose COVID-19(given elsewhere) SARSCOV2 VAC 100MCG/0.5ML IM 07/14/2020 08:52:00 AM EST completed eCW1 ([facility]) Moderna #1 dose COVID-19(given elsewhere) SARSCOV2 VAC 100MCG/0.5ML IM 07/14/2020 08:52:00 AM EST completed eCW1 ([facility]) Moderna #1 dose COVID-19(given elsewhere) SARSCOV2 VAC 100MCG/0.5ML IM 07/14/2020 08:52:00 AM EST completed eCW1 ([facility]) Moderna #1 dose COVID-19(given elsewhere) SARSCOV2 VAC 100MCG/0.5ML IM 07/14/2020 08:52:00 AM EST completed eCW1 ([facility]) COVID-19 VACCINE Moderna 07/14/2020 12:00:00 AM EST completed [employer] Vaccine Series Complete: YESThis Data wa s Submitted to [facility] Via [employer]. 207 06/28/2020 12:00:00 AM EST completed <td I D="[id number]">Covid-19 (Moderna)</td><td>06/28/2020, 05/31/2020</td><td></td> [facility] COVID-19 VACCINE Moderna 06/28/2020 12:00:00 AM EST completed [employer] Vaccine Series Complete: YESThis Data wa s Submitted to [facility] Via [employer]. 207 05/31/2020 12:00:00 AM EST completed <td I D="[id number]">Covid-19 (Moderna)</td><td>06/28/2020, 05/31/2020</td><td></td> [facility] COVID-19 VACCINE Moderna 05/31/2020 12:00:00 AM EST completed [employer] Vaccine Series Complete: NOThis Data was Submitted to [facility] Via [employer]. influenza, recombinant, quadrIvalent,injectable, prese rvative free 03/21/2020 08:46:00 AM EST completed eCW1 ([facility]) influenza, recombinant, quadrIvalent,injectable, prese rvative free 03/21/2020 08:46:00 AM EST completed eCW1 ([facility]) influenza, recombinant, quadrIvalent,injectable, prese rvative free 03/21/2020 08:46:00 AM EST completed eCW1 ([facility]) influenza, recombinant, quadrIvalent,injectable, prese rvative free 03/21/2020 08:46:00 AM EST completed eCW1 ([facility]) influenza, recombinant, quadrIvalent,injectable, prese rvative free 03/21/2020 08:46:00 AM EST completed eCW1 ([facility]) influenza, recombinant, quadrIvalent,injectable, prese rvative free 03/21/2020 08:46:00 AM EST completed eCW1 ([facility]) influenza, recombinant, quadrIvalent,injectable, prese rvative free 03/21/2020 08:46:00 AM EST completed eCW1 ([facility]) influenza, recombinant, quadrIvalent,injectable, prese rvative free 03/21/2020 08:46:00 AM EST completed eCW1 ([facility]) influenza, recombinant, quadrIvalent,injectable, prese rvative free 03/21/2020 08:46:00 AM EST completed eCW1 ([facility]) influenza, recombinant, quadrIvalent,injectable, prese rvative free 03/21/2020 08:46:00 AM EST completed eCW1 ([facility]) influenza, recombinant, quadrIvalent,injectable, prese rvative free 03/21/2020 08:46:00 AM EST completed eCW1 ([facility]) Zoster Recombinant Vaccine (AKA SHINGRIX 2 Dose) 02/06/2020 12:00:00 AM EDT completed <td ID="[id number]">Zoster Recom binant Vaccine (AKA SHINGRIX 2 Dose)</td><td>02/06/2020, 12/08/2019</td><td></td> [facility] Medications Medication Brand Name Start Date Product Form Dose Route Admi nistrative Instructions Pharmacy Instructions Status Indications Reaction Description Data Source(s) Bisacodyl 5 MG Delayed Release Oral Tablet [Dulcolax] Dulcol ax 01/30/2021 12:00:00 AM EDT ORAL active M EDENT ([facility], ) Clenpiq Clenpiq 01/30/2021 12:00:00 AM EDT active MEDENT ([facility], ) 24 HR Bupropion Hydrochloride 150 MG Ext ended Release Oral Tablet buPROPion (WELLBUTRIN XL) 150 MG 24 hr tablet buPROPion (WELLBUTRIN XL) 150 MG 24 hr tablet 01/07/2021 12:00:00 AM EDT activ e Cigarette nicotine dependence with nicotine-induced disorder TAKE 1 TABLET BY MOUTH EVERY DAY [facility] Cigarette nicotine dependence with nicot ine-induced disorder Levothyroxine Sodium 0.112 MG Oral Table t levothyroxine (SYNTHROID, LEVOTHROID) 112 MCG tablet levothyroxine (SYNTHROID, LEVOTHROID) 112 MCG tablet 0 01/07/2021 12:00:00 AM EDT active TAKE 1 T ABLET BY MOUTH EVERY DAY [facility] Clobetasol Propionate 0.5 MG/ML Topical Cream clobetasol (TEMOVATE) 0.05 % cream clobetasol (TEMOVATE) 0.05 % cream 11/10/2020 12:00:00 AM EDT active APPLY TO AFFECTED AREA ON LE FT WRIST TWICE DAILY NEEDED FOR UP TO 14 DAYS [facility] Clobetasol Propionate 0.5 MG/ML Topical Cream Clobetasol Pro pionate 11/10/2020 12:00:00 AM EDT active Sadaf MONK ([facility]) icosapent ethyl 1000 MG Oral Capsule Icosapent Ethyl ( Vascepa) 1 g CAPS Icosapent Ethyl (Vascepa) 1 g CAPS 10/17/2020 12:00:00 AM EDT 2 {capsule} Oral active Take 2 capsules by m outh 2 (two) times a day [facility] glucose blood test strip [id number] 10/14/2020 12:00:00 AM EDT active Type 1 diabetes mellitus not at goal CHECK BLOOD SUGAR 6 TIMES DA [facility] Type 1 diabetes mellitus not at goal 1.5 ML Insulin Glargine 300 UNT/ML Pen I njector [Toujeo] Insulin Glargine, 1 Unit Dial, (Toujeo SoloStar) 300 UNIT/ML SOPN Insulin Glargine, 1 Unit Dial, (Toujeo SoloStar) 300 UNIT/ML SOPN 10/08/2020 12:00:00 AM EDT 15 U Subcutaneous active Inject 15 Un its under the skin daily Or as directed [facility] 20 [facility] glucose blood test strip [id number] 07/23/2020 12:00:00 AM EST active Type 1 diabetes mellitus not at goal CHECK BLOOD SUGAR 6 TIMES DA [facility] Type 1 diabetes mellitus not at goal 1.5 ML Insulin Glargine 300 UNT/ML Pen I njector Insulin Glargine, 1 Unit Dial, (TOUJEO SOLOSTAR) 300 UNIT/ML SOPN Insulin Glargine, 1 Unit Dial, (TOUJEO SOLOSTAR) 300 UNIT/ML SOPN 07/02/2020 12:00:00 AM EST 17 U Subcut aneous aborted Inject 17 Units under the skin d aily [facility] 24 HR Bupropion Hydrochloride 150 MG Ext ended Release Oral Tablet buPROPion (WELLBUTRIN XL) 150 MG 24 hr tablet buPROPion (WELLBUTRIN XL) 150 MG 24 hr tablet 06/28/2020 12:00:00 AM EST activ e Cigarette nicotine dependence with nicotine-induced disorder TAKE 1 TABLET BY MOUTH EVERY DAY [facility] Cigarette nicotine dependence with nicot ine-induced disorder Levothyroxine Sodium 0.112 MG Oral Table t levothyroxine (SYNTHROID, LEVOTHROID) 112 MCG tablet levothyroxine (SYNTHROID, LEVOTHROID) 112 MCG tablet 0 06/28/2020 12:00:00 AM EST active TAKE 1 T ABLET BY MOUTH EVERY DAY [facility] 3 ML Insulin Lispro 100 UNT/ML Pen Injec tor Insulin Lispro, 1 Unit Dial, 100 UNIT/ML SOPN Insulin Lispro, 1 Unit Dial, 100 UNIT/ML SOPN 05/31/19 12:00:00 AM EST active INJECT A S DIRECTED THREE TIMES DAILY WITH MEALS MAXIMUM DAILY DOSE IS 30 UNITS [facility] Blood Glucose Monitoring Suppl (Clickberry VERIO) w/Device KIT [id number] 03/21/2020 12:00:00 AM EST 1 {each} active 1 each by Miscellaneous route daily [facility] Insulin Pen Needle (B-D UF III MINI PEN NEEDLES) 31G X 5 MM [facility] [id number] 03/09/2020 12:00:00 AM EDT active Use 4 (four) x a day w/insulin injections. [facility] Lancets (Botanical TansUCH ULTRASOFT) lancets [id number] 03/09/2020 12:00: 00 AM EDT active Test Blood Glucose MDD: 7 (seven) times a day on insulin; dx: E10.9 [facility] Sulfamethoxazole 800 MG / Trimethoprim 160 MG Oral Tab let Sulfamethoxazole/Trimethoprim DS 03/06/2020 12:00:00 AM EDT ORAL active MEDENT ([facility], [facility]) Aspirin 81 MG Delayed Release Oral Tablet aspirin EC 8 1 MG EC tablet aspirin EC 81 MG EC tablet 81 mg Oral aborted Take 81 mg by mouth daily [facility] Insurance Providers Payer name Policy type / Coverage type Policy ID Covered democrat ID Covered democrat's relationship to merrill Policy Merrill Plan Information [employer] INRIX Part B [facility] [id number] Self [facility] FIR [facility] Community Plan Medigap Part B [id number] Self 1 [id number] [facility] Plan Medigap Part B [id number] Self 1 [id number] [facility] Plan Medigap Part B [id number] Self 1 [id number] [facility] MEDICARE [id number] Qi [id number] [facility] Medicare Dual Complete Commercial [id number] Self 1 [id number] [facility] [id number] SP [id number] [facility] MEDICARE [id number] Qi [id number] [facility] MEDICARE [id number] xxxxxxxxx [id number] [facility] [id number] SP [id number] MEDICARE [id number] Qi [id number] A MEDICAID [id number] Qi [id number] MEDICAID [id number] xxxxxxxx [id number] MEDICAID [id number] Qi [id number] MEDICAID [id number] SP [id number] [facility] MCR Commercial [id number] Self [id number] [facility] Medicare Solutions Commercial [id number] Self [id number] Medicaid Medigap Part B [id number] Self [id number] MEDICARE COMPLETE [id number] SP [id number] ANSI-Medicare Part B [id number] ANSI-Medicaid [id number] ANSI-Medicaid [id number] ANSI-Medicare Part B [id number] ANSI-Medicaid [id number] ANSI-Medicaid [id number] ANSI-Medicare Part B [id number] ANSI-Medicare Part B [id number] ANSI-Medicare Part B [id number] ANSI-Medicare Part B [id number] ANSI-Medicaid [id number] ANSI-Medicaid [id number] ANSI-Medicaid [id number] ANSI-Medicaid [id number] ANSI-Medicare Part B [id number] ANSI-Medicare Part B [id number] [facility] Health Maintenance Organization (HMO) [id number] Self [id number] Medicare Natl Gov't Servi Medicare Primary [id number] [facility] [id number] SP [id number] MEDICARE [id number] SP [id number] A [facility] Health Maintenance Organization (HMO) [id number] Self [id number] Medicare Natl Gov't Servi Medicare Primary [id number] Self [id number] [facility] Part B [id number] Self [id number] Medicare [facility] Medigap Part B [id number] Self 1 [id number] Medicare Dme Supplies Medigap Part B [id number] Self 1 [id number] [place] Med[place] Part B [id number].991. 64830.0 Self [id number] [facility] [employer] Medigap Part B [id number] Self [id number] [place] Med[place] Part B [id number]. 91364.0 Self [id number] Medicare Dme Supplies Medigap Part B [id number] Self 1 [id number] Medicare [place] Medicare Primary [id number] Self 1 [id number] [facility] [employer] Medigap Part B [id number] Self [id number] [place] Med[place] Part B [id number]. 67604.0 Self [id number] Medicare Dme Supplies Medigap Part B [id number] Self 1 [id number] Medicare [place] Medicare Primary [id number] Self 1 [id number] Medicaid [place] Medigap Part B [id number] [id number] Self [id number] [facility] Health Maintenance Organization (HMO) [id number] Self [id number] HMO BLUE [id number] SP [id number] Hmo Blue Option/Medicaid Health Maintenance Organization (HMO) [id number] Self Medicaid [place] Med[place] Part B [id number] Self Medicare [place]/[facility] Medicare Primary [id number] Self MEDICARE COMPLETE-[facility] O [id number] S [id number] [facility](MCA[facility]) O [id number] S [id number] MEDICARE C [id number] S [id number] A Medicaid [place] Medicaid [id number] Self Medicare Natl Gov't Servi Medicare Primary [id number] Self [facility](MCAID) O [id number] S [id number] [facility] COMMUNITY PLAN MCDO [id number] SP [id number] BLUE CROSS MENARD PLAN [id number] SP [id number] [employer]CE[employer] BCBS P [id number] S [id number] [id number] BLUE CROSS BLUE SHIELD-O/P [id number] BLUE CROSS MENARD PLAN [id number] SP [id number] [place] [id number] SP [id number] [facility] MCRO [id number] SP [id number] [facility] MCRO [id number] SP [id number] [place] [id number] SP [id number] MEDICAID [id number] SP [id number] [facility](MCAID) O [id number] S [id number] MEDICAID M [id number] S [id number] ANSI-Medicaid [id number] ANSI-Medicare Part B [id number] ANSI-Not a Secondary Insurance [id number] ANSI-Medicaid [id number] ANSI-Medicaid [id number] ANSI-Not a Secondary Insurance [id number] ANSI-Medicaid [id number] ANSI-Medicare Part B [id number] [facility] [place] Organization (HMO) [id number] Self [id number] Problems, Conditions, and Diagnoses Code Display Name Description Problem Type Effective Dates Data Source(s) E03.9 Hypothyroidism, unspecified Hypothyroidism, unspecifie d Diagnosis 02/18/2021 10:15:03 AM EDT [facility] I10 Essential (primary) hypertension Essential (primary) h ypertension Diagnosis 02/18/2021 10:15:03 AM EDT [facility] E78.00 Pure hypercholesterolemia, unspecified P ure hypercholesterolemia, unspecified Diagnosis 02/18/2021 10:15:03 AM EDT [facility] E10.9 Type 1 diabetes mellitus without complic ations Type 1 diabetes mellitus without complic Diagnosis 02/18/2021 10:15:03 AM EDT [facility] Z91.89 Other specified personal risk factors, n ot elsewhere classified Other specified personal risk factors, n Diagnosis 01/23/2021 10:12:50 AM ED T [facility] F17.210 Nicotine dependence, cigarettes, uncompl icated Nicotine dependence, cigarettes, uncompl Diagnosis 01/23/2021 10:12:50 AM EDT [facility] 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 Occlusion and stenosis of bilateral manzanares Diagnosis 01/23/2021 10:12:50 AM EDT [facility] E78.00 Pure hypercholesterolemia, unspecified P ure hypercholesterolemia, unspecified Diagnosis 01/23/2021 10:12:50 AM EDT [facility] I10 Essential (primary) hypertension Essential (primary) h ypertension Diagnosis 01/23/2021 10:12:50 AM EDT [facility] E55.9 Vitamin D deficiency, unspecified Vitamin D defi ciency, unspecified Diagnosis 11/21/2020 10:33:04 AM EDT [facility] F17.219 Nicotine dependence, cigaret wander, with unspecified nicotine-induced disorders Nicotine dependence, cigarettes, with un Diagnosis 11/21/2020 10:33:04 AM EDT [facility] M81.0 Age-related osteoporosis without current pathological fracture Age-related osteoporosis without current Diagnosis 11/21/2020 10:33:04 AM EDT [facility] Z91.89 Other specified personal risk factors, n ot elsewhere classified Other specified personal risk factors, n Diagnosis 10/08/2020 09:41:02 AM ED T [facility] 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 Occlusion and stenosis of bilateral manzanares Diagnosis 02/07/2020 09:56:48 AM EDT [facility] E78.00 [id number] Hypercholesterolemia Problem 10/19/2020 12:0 0:00 AM EDT eCW1 ([facility]) E03.9 Hypothyroid Hypothyroid [id number] 10/08/2020 12:00:00 AM EDT [facility] G89.29 [id number] Other chronic pain Problem 10/03/2020 12:00: 00 AM EDT eCW1 ([facility]) E03.9 [id number] Hypothyroidism (acquired) Problem 03/21/2020 12:00:00 AM EST eCW1 ([facility]) Z91.89 High risk of cardiac event High risk of cardiac event [id number] 02/10/2020 12:00:00 AM EDT [facility] Surgeries/Procedures Procedure Description Date Indications Data Source(s) DUPLEX SCAN EXTRACRANIAL ART COMPL BI STUDY 03/06/2021 12:00:00 AM EDT [facility] ([facility]) ECG ROUTINE ECG W/LEAST 12 LDS W/I&R <td>POCT AMB EKG</td><td>Routine</td><td>01/23/2021 10:39 AM EDT</td><td> Essential hypertension</td><td> </td> 01/23/2021 10:39:00 AM EDT Essential hypertension [facility] Essential hypertension OFFICE OUTPATIENT VISIT 15 MINUTES 11/10/2020 12:00:00 AM EDT [facility] ([facility]) LIPID PANEL EXTENDED @ <td>LIPID PANEL EXTENDED @</td><td>Routine</td><td>10/08/2020 11:25 AM EDT</td><td></td><td> </td> 10/08/2020 11:25:00 AM EDT [facility] ALBUMIN URINE MICROALBUMIN SEMIQUANTITATIVE <td>MICROA LBUMIN/CREAT RATIO</td><td>Routine</td><td>10/08/2020 11:25 AM EDT</td><td></td><td> </td> 10/08/2020 11:25:00 AM EDT [facility] 25 HYDROXY INCLUDES FRACTIONS IF PERFORMED <td>VITAMIN D 25 HYDROXY</td><td>Routine</td><td>10/08/2020 11:25 AM EDT</td><td></td><td> </td> 10/08/2020 11:25:00 AM EDT [facility] THYROID STIMULATING HORMONE TSH <td>TSH</td><td>Routin e</td><td>10/08/2020 11:25 AM EDT</td><td></td><td> </td> 10/08/2020 11:25:00 AM EDT [facility] HEMOGLOBIN GLYCOSYLATED A1C <td>HEMOGLOBIN A1C</td><td>Routine</td><td>10/08/2020 11:25 AM EDT</td><td></td><td> </td> 10/08/2020 11:25:00 AM EDT [facility] BASIC METABOLIC PANEL CALCIUM TOTAL <td>BASIC METABOLI C PANEL</td><td>Routine</td><td>10/08/2020 11:25 AM EDT</td><td></td><td> </td> 10/08/2020 11:25:00 AM EDT [facility] Immunization: Flublok Quadrivalent (18 years & older) 0.5mL IM (Influenza) 03/21/2020 12:00:00 AM EST eC ([facility]) Duplex Scan Extracranial Arteries, Follow-Up Or Limited Stud y 02/28/2020 12:00:00 AM EDT MEDENT ([facility]) Duplex Scan Extracranial Arteries, Follow-Up Or Limited Stud y 02/28/2020 12:00:00 AM EDT [facility] ([facility]) Results ID Date Data Source [id number] 03/09/2021 11:30:00 AM EDT [facility] Name Value Range Interpretation Code Description Data Poonam rce(s) Supporting Document(s) SARS-CoV-2 (COVID-19) RNA [Presence] in Respiratory specimen by JACK with probe detection Not Detected [facility] This lab was ordered by [facility] and reported by [employer]. ID Date Data Source [id number] 02/18/2021 09:28:42 PM EDT [facility] Name Value Range Interpretation Code Description Data Poonam rce(s) Supporting Document(s) HEMOGLOBIN A1C @ 8.2 % (4.0-6.0) H [facility] Performed using Siem[employer] [place] immunoassa y.Care must be taken when interpreting [id number] in patients with a hemoglobin variantor decreased erythrocyte lifespan. Values 5.7 - 6.4% suggest prediabetes.Values >=6.5% are diagnostic for diabetes.REFERENCE: DIABETES CARE 2018: 41(S13-S27). EST AVERAGE GLUCOSE 189 mg/dL [facility] ID Date Data Source [id number] 02/18/2021 09:22:11 PM EDT [facility] Name Value Range Interpretation Code Description Data Poonam rce(s) Supporting Document(s) FREE THYROXINE @ 1.42 ng/dL (0.76-1.46) [facility] ID Date Data Source [id number] 02/18/2021 09:22:11 PM EDT [facility] Name Value Range Interpretation Code Description Data Poonam rce(s) Supporting Document(s) TSH,ULTRASENSITIVE @ 1.390 mIU/L (0.360-4.170) [facility] ID Date Data Source [id number] 02/18/2021 09:22:11 PM EDT [facility] Name Value Range Interpretation Code Description Data Poonam rce(s) Supporting Document(s) APPEARANCE (CLEAR) [facility] CHOLESTEROL @ 175 mg/dL (0-200) [facility] TRIGLYCERIDE @ 96 mg/dL (30-200) [facility] HDL CHOLESTEROL @ 70 mg/dL (>40) [facility] PER NCEP ATP III GUIDELINES:RESULTS LOWE R THAN 40 MG/DL ARE SUGGESTIVEOF INCREASED RISK FOR CORONARY ARTERYDISEASE. RESULTS > OR = TO 60 MG/DL ARECONSIDERED A NEGATIVE RISK FACTOR. CHOL/HDL RATIO 2.5 RATIO [facility] INTERPRETATION OF CHOL-HDL RATIO CHD RISK FEMALE MALEVERY HIGH >8.3 >14.3HIGH 5.6- 8.3 6.7- 14.3AVERAGE 3.7- 5.6 4.0- 6.7BELOW AVERAGE 2.5- 3.7 2.7- 4.0PROTECTED <2.5 <2.7 DIRECT LDL @ 83 mg/dL (<130) [facility] [place] PER NCEP ATP III GUIDELINES: OPTIMAL < 100 NEAR OPTIMAL 100 - 129BORDERLINE HIGH 130 - 159 HIGH 160 - 189 VERY HIGH > 189 VLDL (CALC) 22 mg/dL (0-30) [facility] ID Date Data Source [id number] 02/18/2021 09:22:11 PM EDT [facility] Name Value Range Interpretation Code Description Data Poonam rce(s) Supporting Document(s) SODIUM 140 mmol/L (136-145) [facility] POTASSIUM 3.7 mmol/L (3.6-5.2) [facility] CHLORIDE 105 mmol/L (100-108) [facility] CO2 27 mmol/L (22-31) [facility] ANION GAP 8 mmol/L (7-16) [facility] UREA NITROGEN 15 mg/dL (7-24) [facility] CREATININE 0.69 mg/dL (0.60-1.00) [facility] BUN/CREAT RATIO 21.7 RATIO (10.0-20.0) H [facility] GLUCOSE 136 mg/dL (70-99) H [facility] CALCIUM 9.1 mg/dL (8.4-10.2) [facility] GFR >60 ml/min/1.73m2 (>59) [facility] GFR ( AMER) >60 ml/min/1.73m2 (>59) [facility] GFR INTERPRETATION [facility] --NORMAL KIDNEY FUNCTION OR MILD DISEASE - GFR >OR= 60CHRONIC KIDNEY DISEASE - GFR 15 - 59RENAL FAILURE - GFR <15 Est. GFR calculation based on the MDRDstudy equation, which assumes a steadystate for creatinine. Est. GFR should notbe used for medication dosing. ID Date Data Source Low Dose Lung Screening CT Chest 10/10/2020 12:00:00 AM EDT [facility] ([facility]) Name Value Range Interpretation Code Description Data Poonam rce(s) Supporting Document(s) Low Dose Lung Screening CT [facility] eC1 ([facility]) ID Date Data Source [id number] 10/08/2020 09:07:56 PM EDT [facility] Name Value Range Interpretation Code Description Data Poonam rce(s) Supporting Document(s) HEMOGLOBIN A1C @ 7.8 % (4.0-6.0) H [facility] Performed using [employer] [place] immunoassa y.Care must be taken when interpreting [id number] in patients with a hemoglobin variantor decreased erythrocyte lifespan. Values 5.7 - 6.4% suggest prediabetes.Values >=6.5% are diagnostic for diabetes.REFERENCE: DIABETES CARE 2018: 41(S13-S27). EST AVERAGE GLUCOSE 177 mg/dL [facility] ID Date Data Source [id number] 10/08/2020 09:04:09 PM EDT [facility] Name Value Range Interpretation Code Description Data Poonam rce(s) Supporting Document(s) ALBUMIN, URINE 0.93 mg/dL [facility] CREATININE,URINE 40.40 mg/dL [facility] ALB/CREATININE RATIO 23.0 ug/mg (0.0-29.9) [facility] ID Date Data Source [id number] 10/08/2020 08:36:07 PM EDT [facility] Name Value Range Interpretation Code Description Data Poonam rce(s) Supporting Document(s) 25 HYDROXY VIT D @ 39 ng/mL (31-100) [facility] A REVIEW OF THE LITERATURE SUGGESTS THEF OLLOWING RANGES FOR THE CLASSIFICATIONOF 25-OH VITAMIN D STATUS: VITAMIN D STATUS 25-OH VITAMIN D DEFICIENCY <20 NG/MLINSUFFICIENCY 20-30 NG/MLSUFFICIENCY 31 - 100 NG/MLTOXICITY > 100 NG/ML A PEDIATRIC REFERENCE RANGE HAS NOT BEENESTABLISHED USING THIS METHOD. ID Date Data Source [id number] 10/08/2020 08:11:47 PM EDT [facility] Name Value Range Interpretation Code Description Data Poonam rce(s) Supporting Document(s) TSH,ULTRASENSITIVE @ 0.339 mIU/L (0.360-4.170) L [facility] ID Date Data Source [id number] 10/08/2020 08:11:47 PM EDT [facility] Name Value Range Interpretation Code Description Data Poonam rce(s) Supporting Document(s) APPEARANCE (CLEAR) [facility] CHOLESTEROL @ 163 mg/dL (0-200) [facility] TRIGLYCERIDE @ 118 mg/dL (30-200) [facility] HDL CHOLESTEROL @ 61 mg/dL (>40) [facility] PER NCEP ATP III GUIDELINES:RESULTS LOWE R THAN 40 MG/DL ARE SUGGESTIVEOF INCREASED RISK FOR CORONARY ARTERYDISEASE. RESULTS > OR = TO 60 MG/DL ARECONSIDERED A NEGATIVE RISK FACTOR. CHOL/HDL RATIO 2.7 RATIO [facility] INTERPRETATION OF CHOL-HDL RATIO CHD RISK FEMALE MALEVERY HIGH >8.3 >14.3HIGH 5.6- 8.3 6.7- 14.3AVERAGE 3.7- 5.6 4.0- 6.7BELOW AVERAGE 2.5- 3.7 2.7- 4.0PROTECTED <2.5 <2.7 DIRECT LDL @ 76 mg/dL (<130) [facility] [place] PER NCEP ATP III GUIDELINES: OPTIMAL < 100 NEAR OPTIMAL 100 - 129BORDERLINE HIGH 130 - 159 HIGH 160 - 189 VERY HIGH > 189 VLDL (CALC) 26 mg/dL (0-30) [facility] ID Date Data Source [id number] 10/08/2020 08:11:42 PM EDT [facility] Name Value Range Interpretation Code Description Data Poonam rce(s) Supporting Document(s) SODIUM 138 mmol/L (136-145) [facility] POTASSIUM 4.0 mmol/L (3.6-5.2) [facility] CHLORIDE 105 mmol/L (100-108) [facility] CO2 23 mmol/L (22-31) [facility] ANION GAP 10 mmol/L (7-16) [facility] UREA NITROGEN 13 mg/dL (7-24) [facility] CREATININE 0.84 mg/dL (0.60-1.00) [facility] BUN/CREAT RATIO 15.5 RATIO (10.0-20.0) [facility] GLUCOSE 304 mg/dL (70-99) H [facility] CALCIUM 8.7 mg/dL (8.4-10.2) [facility] GFR >60 ml/min/1.73m2 (>59) [facility] GFR ( AMER) >60 ml/min/1.73m2 (>59) [facility] GFR INTERPRETATION [facility] --NORMAL KIDNEY FUNCTION OR MILD DISEASE - GFR >OR= 60CHRONIC KIDNEY DISEASE - GFR 15 - 59RENAL FAILURE - GFR <15 Est. GFR calculation based on the MDRDstudy equation, which assumes a steadystate for creatinine. Est. GFR should notbe used for medication dosing. ID Date Data Source QUENTIN VILLALOBOS COMPLETE (AP/LAT) 10/03/2020 12:00:00 AM EDT [email or web address] ([facility]) Name Value Range Interpretation Code Description Data Poonam rce(s) Supporting Document(s) PLZ HIP COMPLETE (AP/LAT) [email or web address] ([facility]) ID Date Data Source PHOSPHOROUS LEVEL 03/21/2020 12:00:00 AM EST [email or web address] ([facility]) Name Value Range Interpretation Code Description Data Poonam rce(s) Supporting Document(s) 3.1 2.5-4.9 PHOSPHORUS LEVEL [email or web address] ([facility]) ID Date Data Source MAGNESIUM LEVEL 03/21/2020 12:00:00 AM EST [email or web address] ([facility]) Name Value Range Interpretation Code Description Data Poonam rce(s) Supporting Document(s) 2.0 1.8-2.4 MAGNESIUM LEVEL eCW1 (formerly [facility]) ID Date Data Source Basic Metabolic Profile (BMP) 03/21/2020 12:00:00 AM EST eCW 1 ([facility]) Name Value Range Interpretation Code Description Data Poonam rce(s) Supporting Document(s) 117 70-100 GLUCOSE, FASTING eCW1 ([facility]) 0.74 0.55-1.30 CREATININE FOR GFR eCW1 ([facility]) 9 7-18 BLOOD UREA NITROGEN eCW1 ([facility] hospital) 104 98-107 CHLORIDE LEVEL eCW1 ([facility]) > 60.0 >39 GLOMERULAR FILTRATION RATE eCW 1 ([facility]) 138 136-145 SODIUM LEVEL eCW1 ([facility]) 30 21-32 CARBON DIOXIDE LEVEL eCW1 ([facility]) 4.5 3.5-5.1 POTASSIUM SERUM eCW1 (formerly [facility]) 9.7 8.8-10.2 CALCIUM LEVEL eCW1 ([facility]) ID Date Data Source [id number] 03/06/2020 01:12:00 PM EDT MEDENT ([facility]) Name Value Range Interpretation Code Description Data Poonam rce(s) Supporting Document(s) Bacteria identified in Urine by Culture Laboratory test result [facility] ([facility], [facility]) Rx Bactrim ID Date Data Source [id number] 02/28/2020 02:47:00 PM EDT MEDENT ([facility]) Name Value Range Interpretation Code Description Data Poonam rce(s) Supporting Document(s) Carotid Ultrasound Left Laboratory test result MEDENT ([facility]) ID Date Data Source [id number] 02/08/2020 07:42:38 AM EDT [facility] Name Value Range Interpretation Code Description Data Poonam rce(s) Supporting Document(s) HEMOGLOBIN A1C @ 8.8 % (4.0-6.0) H [facility] Performed using Siemens [place] immunoassa y.Care must be taken when interpreting [id number] in patients with a hemoglobin variantor decreased erythrocyte lifespan. Values 5.7 - 6.4% suggest prediabetes.Values >=6.5% are diagnostic for diabetes.REFERENCE: DIABETES CARE 2018: 41(S13-S27).PERFORMED AT [address] [place] [id number] EST AVERAGE GLUCOSE 206 mg/dL [facility] ID Date Data Source [id number] 02/07/2020 09:43:05 PM EDT [facility] Name Value Range Interpretation Code Description Data Poonam rce(s) Supporting Document(s) APPEARANCE (CLEAR) [facility] CHOLESTEROL @ 175 mg/dL (0-200) [facility] TRIGLYCERIDE @ 145 mg/dL (30-200) [facility] HDL CHOLESTEROL @ 60 mg/dL (>40) [facility] PER NCEP ATP III GUIDELINES:RESULTS LOWE R THAN 40 MG/DL ARE SUGGESTIVEOF INCREASED RISK FOR CORONARY ARTERYDISEASE. RESULTS > OR = TO 60 MG/DL ARECONSIDERED A NEGATIVE RISK FACTOR. CHOL/HDL RATIO 2.9 RATIO [facility] INTERPRETATION OF CHOL-HDL RATIO CHD RISK FEMALE MALEVERY HIGH >8.3 >14.3HIGH 5.6- 8.3 6.7- 14.3AVERAGE 3.7- 5.6 4.0- 6.7BELOW AVERAGE 2.5- 3.7 2.7- 4.0PROTECTED <2.5 <2.7 DIRECT LDL @ 91 mg/dL (<130) [facility] [place] PER NCEP ATP III GUIDELINES: OPTIMAL < 100 NEAR OPTIMAL 100 - 129BORDERLINE HIGH 130 - 159 HIGH 160 - 189 VERY HIGH > 189 VLDL (CALC) 24 mg/dL (0-30) [facility] ID Date Data Source [id number] 02/07/2020 09:43:05 PM EDT [facility] Name Value Range Interpretation Code Description Data Poonam rce(s) Supporting Document(s) TSH,ULTRASENSITIVE @ 1.140 mIU/L (0.360-4.170) [facility] ID Date Data Source [id number] 02/07/2020 09:43:05 PM EDT [facility] Name Value Range Interpretation Code Description Data Poonam rce(s) Supporting Document(s) SODIUM 137 mmol/L (136-145) [facility] POTASSIUM 4.1 mmol/L (3.6-5.2) [facility] CHLORIDE 103 mmol/L (100-108) [facility] CO2 26 mmol/L (22-31) [facility] ANION GAP 8 mmol/L (7-16) [facility] UREA NITROGEN 15 mg/dL (7-24) [facility] CREATININE 0.90 mg/dL (0.60-1.00) [facility] BUN/CREAT RATIO 16.7 RATIO (10.0-20.0) [facility] GLUCOSE 353 mg/dL (70-99) H [facility] CALCIUM 9.5 mg/dL (8.4-10.2) [facility] GFR >60 ml/min/1.73m2 (>59) [facility] GFR ( AMER) >60 ml/min/1.73m2 (>59) [facility] GFR INTERPRETATION [facility] --NORMAL KIDNEY FUNCTION OR MILD DISEASE - GFR >OR= 60CHRONIC KIDNEY DISEASE - GFR 15 - 59RENAL FAILURE - GFR <15 Est. GFR calculation based on the MDRDstudy equation, which assumes a steadystate for creatinine. Est. GFR should notbe used for medication dosing. ID Date Data Source [id number] 02/07/2020 09:02:22 PM EDT Lab [facility] Name Value Range Interpretation Code Description Data Poonam rce(s) Supporting Document(s) ALBUMIN, URINE 1.35 mg/dL [facility] CREATININE,URINE 39.40 mg/dL [facility] ALB/CREATININE RATIO 34.3 ug/mg (0.0-29.9) H Lab [facility] ID Date Data Source [id number] 02/07/2020 05:01:35 PM EDT Lab [facility] Name Value Range Interpretation Code Description Data Poonam rce(s) Supporting Document(s) 25 HYDROXY VIT D @ 31 ng/mL (31-100) Lab [facility] A REVIEW OF THE LITERATURE SUGGESTS THEF OLLOWING RANGES FOR THE CLASSIFICATIONOF 25-OH VITAMIN D STATUS: VITAMIN D STATUS 25-OH VITAMIN D DEFICIENCY <20 NG/MLINSUFFICIENCY 20-30 NG/MLSUFFICIENCY 31 - 100 NG/MLTOXICITY > 100 NG/ML A PEDIATRIC REFERENCE RANGE HAS NOT BEENESTABLISHED USING THIS METHOD. Procedure Social History Code Duration Value Status Description Data Source(s ) Alcohol intake 02/18/2021 12:00:00 AM EDT Current drinker of al cohol (finding) completed Current drinker of alcohol (finding) [facility] Tobacco use and exposure 01/23/2021 12:00:00 AM EDT Never used co mpleted Never used [facility] Cigarette pack-years 01/23/2021 12:00:00 AM EDT UNK completed [facility] Cigarettes smoked current (pack per day) - Reported 01/24/20 12:00:00 AM EDT UNK completed [facility] Smoking 01/23/2021 12:00:00 AM EDT Former smoker completed Former smoker [facility] Alcohol intake 01/23/2021 12:00:00 AM EDT Current drinker of al cohol (finding) completed Current drinker of alcohol (finding) [facility] Smoking 12/03/2020 12:00:00 AM EDT Former Smoker completed Former Smoker eCW1 ([facility]) Alcohol intake 11/21/2020 12:00:00 AM EDT Current drinker of al cohol (finding) completed Current drinker of alcohol (finding) [facility] Alcohol intake 10/08/2020 12:00:00 AM EDT Current drinker of al cohol (finding) completed Current drinker of alcohol (finding) [facility] Smoking 10/03/2020 12:00:00 AM EDT Current Smoker completed Curre nt Smoker eCW1 ([facility]) Smoking 10/03/2020 12:00:00 AM EDT Current Smoker completed Curre nt Smoker eCW1 ([facility]) Smoking 10/03/2020 12:00:00 AM EDT Current Smoker completed Curre nt Smoker eCW1 ([facility]) Smoking 10/03/2020 12:00:00 AM EDT Current Smoker completed Curre nt Smoker eCW1 ([facility]) Smoking 10/03/2020 12:00:00 AM EDT Current Smoker completed Curre nt Smoker eCW1 ([facility]) Smoking 10/03/2020 12:00:00 AM EDT Current Smoker completed Curre nt Smoker eCW1 ([facility]) Smoking 05/29/2020 12:00:00 AM EST Current Smoker completed Curre nt Smoker eCW1 ([facility]) Smoking 05/29/2020 12:00:00 AM EST Current Smoker completed Curre nt Smoker eCW1 ([facility]) Smoking 03/21/2020 12:00:00 AM EST Current Smoker completed Curre nt Smoker eCW1 ([facility]) Smoking 03/21/2020 12:00:00 AM EST Current Smoker completed Curre nt Smoker eCW1 ([facility]) 05/18/2020 12:00:00 AM EST Cigarette Smoker completed Cig arette Smoker [facility] 05/18/2020 12:00:00 AM EST Current smoker completed Curre nt smoker [facility] Vital Signs ID Date Data Source UNK Name Value Range Interpretation Code Description Data Source(s) Systolic blood pressure 138 mm[Hg] 138 mm[Hg] M EDENT ([facility]) Diastolic blood pressure 68 mm[Hg] 68 mm[Hg] [facility] ([facility]) Systolic blood pressure 130 mm[Hg] 130 mm[Hg] M EDENT ([facility]) Diastolic blood pressure 68 mm[Hg] 68 mm[Hg] MED[facility] ([facility]) Body temperature 94.3 [degF] 94.3 [degF] [facility] ([facility]) Body height 56 [in_i] 56 [in_i] [facility] ([facility]) 4'8" Body weight 132.00 [lb_av] 132.00 [lb_av] MEDEN T ([facility]) Body weight 59.875 kg 59.875 kg [facility] ([facility]) Body mass index (BMI) [Ratio] 29.6 kg/m2 29.6 k g/m2 [facility] ([facility]) Systolic blood pressure 128 mm[Hg] 128 mm[Hg] [facility] Diastolic blood pressure 70 mm[Hg] 70 mm[Hg] [facility] Heart rate 74 /min 74 /min [facility] Body temperature 36.11 Hetal 36.11 Hetal [facility] Respiratory rate 18 /min 18 /min [facility] Body height 154.9 cm 154.9 cm [facility] Body weight 59.875 kg 59.875 kg [facility] Body mass index (BMI) [Ratio] 24.94 kg/m2 24.94 kg/m2 [facility] Systolic blood pressure 138 mm[Hg] 138 mm[Hg] M EDENT ([facility], ) Diastolic blood pressure 58 mm[Hg] 58 mm[Hg] MEDENT ([facility], ) Body height 60 [in_i] 60 [in_i] [facility] ([facility], ) 5'0" Body weight 131.00 [lb_av] 131.00 [lb_av] MEDEN T ([facility]) Body mass index (BMI) [Ratio] 25.6 kg/m2 25.6 k g/m2 [facility] ([facility]) [place] body weight 100 [lb_av] 100 [lb_av] MEDEN T ([facility]) Body weight 59.422 kg 59.422 kg [facility] ([facility]) Body surface area Derived from formula 1.56 m2 1.56 m2 [facility] ([facility]) Systolic blood pressure 122 mm[Hg] 122 mm[Hg] [facility] Diastolic blood pressure 68 mm[Hg] 68 mm[Hg] [facility] Heart rate 61 /min 61 /min [facility] Body height 154.9 cm 154.9 cm [facility] Body weight 60.056 kg 60.056 kg [facility] Body mass index (BMI) [Ratio] 25.02 kg/m2 25.02 kg/m2 [facility] Oxygen saturation in Arterial blood by Pulse oximetry 98 % 98 % [facility] Body weight 131.0 [lb_av] 131.0 [lb_av] eCW1 ([facility]) Body height 60 [in_i] 60 [in_i] eCW1 ([facility]) Body mass index (BMI) [Ratio] 25.58 kg/m2 25.58 kg/m2 eCW1 ([facility]) Heart rate 75 /min 75 /min eCW1 (formerly [facility]) Respiratory rate 18 /min 18 /min eCW1 ([facility]) Body temperature 96.6 [degF] 96.6 [degF] eCW1 ( [facility]) Systolic blood pressure 128 mm[Hg] 128 mm[Hg] e CW1 ([facility]) Diastolic blood pressure 68 mm[Hg] 68 mm[Hg] eCW1 ([facility]) Systolic blood pressure 130 mm[Hg] 130 mm[Hg] [facility] Diastolic blood pressure 62 mm[Hg] 62 mm[Hg] [facility] Heart rate 70 /min 70 /min [facility] Respiratory rate 18 /min 18 /min [facility] Body height 154.9 cm 154.9 cm [facility] Body weight 58.968 kg 58.968 kg [facility] Body mass index (BMI) [Ratio] 24.56 kg/m2 24.56 kg/m2 [facility] Diastolic blood pressure 69 mm[Hg] 69 mm[Hg] MEDENT ([facility]) Body height 60 [in_i] 60 [in_i] [facility]) 5'0" Body mass index (BMI) [Ratio] 25.0 kg/m2 25.0 k g/m2 [facility] ([facility], [facility]) Systolic blood pressure 155 mm[Hg] 155 mm[Hg] M EDENT ([facility], [facility]) Heart rate 73 /min 73 /min MED[facility] ([facility], [facility]) Respiratory rate 13 /min 13 /min [facility] ( [facility], [facility]) Oxygen saturation in Arterial blood by Pulse oximetry 98 % 98 % MED[facility] ([facility], [facility]) Body temperature 97.1 [degF] 97.1 [degF] MED[facility] ([facility], [facility]) Body weight 128.00 [lb_av] 128.00 [lb_av] MEDEN T ([facility], [facility]) Systolic blood pressure 122 mm[Hg] 122 mm[Hg] [facility] Diastolic blood pressure 76 mm[Hg] 76 mm[Hg] [facility] Heart rate 76 /min 76 /min [facility] Body temperature 36.11 Hetal 36.11 Hetal [facility] Respiratory rate 18 /min 18 /min [facility] Body height 154.3 cm 154.3 cm [facility] Body weight 59.875 kg 59.875 kg [facility] Body mass index (BMI) [Ratio] 25.15 kg/m2 25.15 kg/m2 [facility] Body weight 128.8 [lb_av] 128.8 [lb_av] eCW1 ([facility]) Body height 60 [in_i] 60 [in_i] eCW1 ([facility]) Body mass index (BMI) [Ratio] 25.15 kg/m2 25.15 kg/m2 eCW1 ([facility]) Heart rate 86 /min 86 /min eCW1 (formerly [facility]) Respiratory rate 20 /min 20 /min eCW1 ([facility]) Body temperature 98.1 [degF] 98.1 [degF] eCW1 ( [facility]) Systolic blood pressure 112 mm[Hg] 112 mm[Hg] e CW1 ([facility]) Diastolic blood pressure 60 mm[Hg] 60 mm[Hg] eCW1 ([facility]) Body weight 133 [lb_av] 133 [lb_av] eCW1 ([facility]) Body height 60 [in_i] 60 [in_i] eCW1 ([facility]) Body mass index (BMI) [Ratio] 25.97 kg/m2 25.97 kg/m2 eCW1 ([facility]) Heart rate 88 /min 88 /min eCW1 (formerly [facility]) Respiratory rate 20 /min 20 /min eCW1 ([facility]) Body temperature 98.4 [degF] 98.4 [degF] eCW1 ( [facility]) Systolic blood pressure 142 mm[Hg] 142 mm[Hg] e CW1 ([facility]) Diastolic blood pressure 64 mm[Hg] 64 mm[Hg] eCW1 ([facility]) Systolic blood pressure 173 mm[Hg] 173 mm[Hg] Sadaf MONK ([facility], [facility]) Diastolic blood pressure 68 mm[Hg] 68 mm[Hg] MEDENT ([facility], [facility]) Heart rate 88 /min 88 /min [facility] ([facility]) Respiratory rate 18 /min 18 /min [facility] ( [facility], [facility]) Oxygen saturation in Arterial blood by Pulse oximetry 97 % 97 % MED[facility] ([facility], [facility]) Body temperature 97.5 [degF] 97.5 [degF] [facility] ([facility], [facility]) Body weight 127.00 [lb_av] 127.00 [lb_av] MEDEN T ([facility], [facility]) Diastolic blood pressure 70 mm[Hg] 70 mm[Hg] MEDENT ([facility]) Body weight 57.607 kg 57.607 kg [facility] ([facility]) Systolic blood pressure 160 mm[Hg] 160 mm[Hg] M EDENT ([facility]) Body height 60 [in_i] 60 [in_i] [facility] ([facility]) 5'0" Body weight 127.00 [lb_av] 127.00 [lb_av] MEDEN T ([facility]) Body mass index (BMI) [Ratio] 24.8 kg/m2 24.8 k g/m2 [facility] ([facility]) Patient Treatment Plan of Care Planned Activity Planned Date Details Description Data Source (s) Levothyroxine Sodium 0.112 MG Oral Tablet 01/07/2021 12:00:00 AM ED T [facility] 24 HR Bupropion Hydrochloride 150 MG Extended Release Oral Tablet 01/07/2021 12:00:00 AM EDT [facility] Clobetasol Propionate 0.5 MG/ML Topical Cream 11/10/2020 12:00:00 A M EDT [facility] icosapent ethyl 1000 MG Oral Capsule 10/17/2020 12:00:00 AM EDT [facility] glucose blood test strip 10/14/2020 12:00:00 AM EDT [facility] 1.5 ML Insulin Glargine 300 UNT/ML Pen Injector [Touje o] 10/08/2020 12:00:00 AM EDT [facility] glucose blood test strip 07/23/2020 12:00:00 AM EST [facility] 1.5 ML Insulin Glargine 300 UNT/ML Pen Injector 07/02/2020 12:00:00 AM EST [facility] 24 HR Bupropion Hydrochloride 150 MG Extended Release Oral Tablet 06/28/2020 12:00:00 AM EST [facility] Levothyroxine Sodium 0.112 MG Oral Tablet 06/28/2020 12:00:00 AM ES T [facility] 3 ML Insulin Lispro 100 UNT/ML Pen Injector 05/31/2020 12:00:00 AM EST [facility] Blood Glucose Monitoring Suppl (ONETOUCH VERIO) w/Magaly ce KIT 03/21/2020 12:00:00 AM EST [facility] Lancets (ONETOUCH ULTRASOFT) lancets 03/09/2020 12:00:00 AM EDT [facility] Insulin Pen Needle (B-D UF III MINI PEN NEEDLES) 31G X 5 MM MISC 03/09/2020 12:00:00 AM EDT [facility] Aspirin 81 MG Delayed Release Oral Tablet [facility]
--- OUTSIDE RECORDS SUMMARY | 2021-03-14 07:04 | CCD ---
Continuity of Care Document (CCD) Created on: 02/11/2021 Marah Amin External Reference #: [id number] : [id number] Sex: Female Author Author Marah [facility] Organization Unknown Address [address], [address] [place] [address] Phone [phone] Care Team Providers Care Carpentry Foreman Name Role Phone Jayjay Roman M.D. AUTM [phone] Joel Lucas M.D. [facility] [phone] Problems Description No Active Problems Social History Type Date Description Comments Sex Unknown ETOH Use 6 A Week Tobacco Use Start: Unknown Non Smoker Allergies, Adverse Reactions, Alerts Active Allergies Criticality Reaction | Severity Comments Date Penicillin Unable to assess criticality 08/23/2012 Bee Sting Unable to assess criticality 12/04/2015 Seafood Unable to assess criticality 12/04/2015 Tramadol Unable to assess criticality 12/31/2020 Lipitor Unable to assess criticality 12/31/2020 Medications Active Medications SIG Qnty Indications Ordering Provide r Date Dulcolax 5mg Tablets DR take 2 tabs by mouth prior to procedure per instructions. 2tabs Z12.11 Kumar Torres MD 01/30/2021 Clenpiq 10-3.5-12mg-GM -GM/160ML S olution take as directed per doctor's bowel prep instructions. 320ml Z12.1 1 Kumar Torres MD 01/30/2021 Calcium + D3 600-200 Tablets 2 by mouth every day Unknown Vitamin E 400Unit Capsules 1 by mouth twice daily for 3 months course. Unknown Vitamin D3 25mcg (1000 Ut) Tablets 1 by mouth every day Unknown Folic Acid 1mg Tablets one tablet by mouth every day after meals Unknown Docusate Sodium 100mg Capsules use as instructed by provider instructions Unknown Aspirin 81mg Tablets DR Heena bauman day Unknown Prolia 60mg/ml Soln Prefill Syring e Every 6 months Unknown Tourosalinda Solostar 300U nit/ML Solution Pen-Inject PSS Unknown Insulin Lispro 100Unit/ML Solution 15 units daily Unknown Icosapent Ethyl 1gm Capsules 4 pills daily Unknown Bupropion Hydrochloride ER (XL) 150mg Tablets ER 24HR 1 by mouth every day Unknown 000 Rosuvastatin Calcium 40mg Tablets 1 by mouth every day Unknown Clopidogrel Bisulfate 75mg Tablets 1 by mouth every day Unknown Lisinopril 5mg Tablets once a day Unknown Levothyroxine Sodium 112mcg Capsul es Daily Unknown Immunizations Description No Information Available Vital Signs Date Vital Result Comment 01/30/2021 3:39pm BP Systolic 138 mmHg BP Diastolic 58 mmHg Height 60 inches 5'0" Weight 131.00 lb BMI (Body Mass Index) 25.6 kg/m2 [place] Body Weight 100 lb Weight 59.422 kg BSA (Body Surface Area) 1.56 m2 12/04/2015 1:29pm BP Systolic 137 mmHg BP Diastolic 57 mmHg Height 60 inches 5'0" Weight 125.00 lb BMI (Body Mass Index) 24.4 kg/m2 [place] Body Weight 100 lb Weight 56.700 kg BSA (Body Surface Area) 1.53 m2 Results Description No Information Available Procedures Description No Information Available Medical Devices Description No Information Available Encounters Description No Information Available Assessments Date Code Description Provider 01/30/2021 Z12.11 Encounter for screening for guevara gnant neoplasm of colon JODI Shah 01/30/2021 Z86.010 Personal history of colonic poly ps JODI Shah Plan of Treatment Future Appointment(s):* 03/14/2021 1:35 pm - Kumar Torres MD at [facility] 01/30/2021 - JODI Shah* Z12.11 Encounter for screening for malignant neoplasm of colon * Z86.010 Personal history of colonic polyps * * New Medication:* Clenpiq 10-3.5-12 mg-GM -GM/160ML * Dulcolax 5 mg * New Orders:* Colonoscopy, Ordered: 01/30/21 * Comments:* Will arrange for colonoscopy. Reviewed risks and benefits of the procedure, as well as other options, with the patient. Bowel prep procedure was discussed with patient, as well as risks and side effects associated with the bowel prep. A letter will be faxed to Dr. Lucas requesting permission for her to hold Clopidogrel prior to procedure. Patient verbalized understanding of all of the above and is in agreement to proceed. Patient will seek medical attention for any acute changes. Will monitor. * Follow up:* As scheduled, sooner if needed. Functional Status Description No Information Available Mental Status Description No Information Available Referrals Description No Information Available
--- OUTSIDE RECORDS SUMMARY | 2021-03-14 07:04 | CCD | Continuity of Care Document ---
Author Author Marah M[facility] Organization Unknown Address [address], [address] [place] [address] Phone [phone] Care Team Providers Care Wrapper Stitcher Name Role Phone Jayjay Roman M.D. AUTM [phone] Problems Description No Active Problems Social History [...] provider instructions Unknown Aspirin 81mg Tablets DR 1 merna Unknown Prolia 60mg/ml Soln Prefill Syring e [...] lb BMI (Body Mass Index) 25.6 kg/m2 [place] Body Weight 100 lb Weight 59.422 kg BSA (Body Surface Area) 1.56 m2 12/04/2015 1:29pm BP Systolic 137 mmHg BP Diastolic 57 mmHg Height 60 inches 5'0" Weight 125.00 lb BMI (Body Mass Index) 24.4 kg/m2 [place] Body Weight 100 lb Weight 56.700 kg [...] poly ps JODI Shah Plan of Treatment 01/30/2021 - JODI Shah* Z12.11 Encounter for [...]
--- OUTSIDE RECORDS SUMMARY | 2021-03-14 07:04 | CCD | Continuity of Care Document ---
Author Author Marah MOHAN [facility] Organization Unknown Address [address], [address] [place] [address] Phone [phone] Care Team Providers Care Wet Sander Name Role Phone Jayjay Roman M.D. AUTM [phone] Problems Description No Active Problems Social History [...] lb BMI (Body Mass Index) 25.6 kg/m2 [place] Body Weight 100 lb Weight 59.422 kg BSA (Body Surface Area) 1.56 m2 12/04/2015 1:29pm BP Systolic 137 mmHg BP Diastolic 57 mmHg Height 60 inches 5'0" Weight 125.00 lb BMI (Body Mass Index) 24.4 kg/m2 [place] Body Weight 100 lb Weight 56.700 kg [...]
--- OUTSIDE RECORDS SUMMARY | 2021-03-14 07:04 | CCD | Continuity of Care Document ---
Author Author [facility] Organization Unknown Address [address] [place] [id number] Phone Unavailable Care Team Providers Care Acoustical Logging Engineer Name Role Phone Kyle Licona M.D. AUTM [phone] Jayjay Roman M.D. AUTM [phone] Meenakshi Hair M.D. AUTM Problems Active Problems [...] CPT Code Status Date Vaccine Lot # [id number] Given 02/19/2017 Zoster Shingles Vaccine For Subcutaneous Injection [id number] Given 02/18/2017 Pneumococcal Vaccine 2Yrs Or Older Vital Signs Date Vital Result Comment 03/06/2021 10:37am Body Temperature 94.3 F 02/28/2020 2:48pm BP Systolic Right Arm 160 mmHg BP Diastolic Right Arm 70 mmHg Height 60 inches 5'0" Weight 127.00 lb Weight 57.607 kg BMI (Body Mass Index) 24.8 kg/m2 Results Description No Information Available Procedures Date Code Description Status 03/06/2021 27663 Duplex Scan Extracranial Arterie s, Complete Bilateral [...]
--- OUTSIDE RECORDS SUMMARY | 2021-03-14 07:04 | CCD | Continuity of Care Document ---
Author Author [facility] Organization Unknown Address [address], [address] [place] [address] Phone [phone] Care Team Providers Care Clinical Psychiatrist Name Role Phone Jayjay Roman M.D. AUTM [phone] Problems Description No Active Problems Social History [...] lb BMI (Body Mass Index) 25.6 kg/m2 [facility] Body Weight 100 lb Weight 59.422 kg BSA (Body Surface Area) 1.56 m2 12/04/2015 1:29pm BP Systolic 137 mmHg BP Diastolic 57 mmHg Height 60 inches 5'0" Weight 125.00 lb BMI (Body Mass Index) 24.4 kg/m2 [facility] Body Weight 100 lb Weight 56.700 kg [...]
[2021-03-14] MEDS ORDERED: LIDOCAINE 2% 100MG/5ML SDV (FOR ANES.) As Ordered ONE (08:18)
[2021-03-14] MEDS ORDERED: propofoL 200 MG/20 ML VIAL As Ordered ONE ×2 (08:18→08:25)
--- NOTE | 2021-03-14 08:30 | ROOR ---
Patient Name: Marah Amin Procedure Date: 03/14/2021 8:06 AM Date of : 1950 Age: 70 Room: [facility] Gender: Female Note Status: Finalized Procedure: Colonoscopy Indications: High risk colon cancer surveillance: Personal history of colonic polyps Providers: Kumar Torres MD Referring MD: Alan De Guzman Do, JOSSE MATRÍNEZ MD Requesting Provider: Medicines: Monitored Anesthesia Care Complications: No immediate complications. Procedure: Pre-Anesthesia Assessment: - The heart rate, respiratory rate, oxygen saturations, blood pressure, adequacy of pulmonary ventilation, and response to care were monitored throughout the procedure. The Colonoscope was introduced through the anus and advanced to the terminal ileum, with identification of the appendiceal orifice and IC valve. The colonoscopy was performed without difficulty. The patient tolerated the procedure well. The quality of the bowel preparation was good. Findings: The perianal and digital rectal examinations were normal. A 3 mm polyp was found in the cecum. The polyp was sessile. The polyp was removed with a cold snare. Resection and retrieval were complete. Multiple small and large-mouthed diverticula were found in the sigmoid colon. Small Internal Hemorrhoids. The exam was otherwise without abnormality on direct and retroflexion views. Impression: - One 3 mm polyp in the cecum, removed with a cold snare. Resected and retrieved. - Diverticulosis in the sigmoid colon. - Small Internal Hemorrhoids. - The examination was otherwise normal on direct and retroflexion views. Recommendation: - Resume Plavix (clopidogrel) at prior dose today. - Await pathology results. - Repeat colonoscopy in 5 years for surveillance based on clinical status at that time. Procedure Code(s): --- Professional --- 07417, Colonoscopy, flexible; with removal of tumor(s), polyp(s), or other lesion(s) by snare technique Diagnosis Code(s): --- Professional --- K57.30, Diverticulosis of large intestine without perforation or abscess without bleeding K63.5, Polyp of colon Z86.010, Personal history of colonic polyps CPT copyright 2019 [employer]. All rights reserved. The codes documented in this report are preliminary and upon data coder operator review may be revised to meet current compliance requirements. Kumar Torres MD Kumar Torres MD 03/14/2021 8:30:16 AM Electronically signed by Kumar Torres MD Number of Addenda: 0 Note Initiated On: 03/14/2021 8:06 AM Estimated Blood Loss: Estimated blood loss: none.
[2021-03-14 08:50] VITALS: BP 167/69
== END 2021-03-14 09:09 | disposition home or self-care (01) ==
LOC: M OPP 06:58
PROVIDERS: ATTEND Internal Medicine Gastroenterology
DX: Z12.11 Encounter for screening for malignant neoplasm of colon (principal); Z86.010 Personal history of colon polyps; D12.6 Benign neoplasm of colon, unspecified; K57.30 Diverticulosis of large intestine without perforation or abscess without bleeding; K64.8 Other hemorrhoids; Z79.4 Long term (current) use of insulin; Z79.899 Other long term (current) drug therapy; Z88.0 Allergy status to penicillin; Z88.5 Allergy status to narcotic agent; Z88.8 Allergy status to other drugs, medicaments and biological substances; Z91.018 Allergy to other foods; Z91.030 Bee allergy status; Z91.040 Latex allergy status; F17.210 Nicotine dependence, cigarettes, uncomplicated

== ENCOUNTER → 2021-10-15 | Outpatient (CLI) | payer MEDICARE, MEDICAID ==
[~2021-10-15] MED LIST changes: -LISI-898 PO; +LISI5TAB11 PO; -NS 1,000 ML IV ONE
== END ==
LOC: M WHC 08:20
PROVIDERS: ATTEND Family Medicine
DX: Z12.31 Encounter for screening mammogram for malignant neoplasm of breast (principal); Z78.0 Asymptomatic menopausal state; Z80.3 Family history of malignant neoplasm of breast

== ENCOUNTER → 2021-10-16 | Outpatient (CLI) | payer MEDICARE, MEDICAID | LOC: M WUC 12:58 | DX: M85.812 Other specified disorders of bone density and structure, left shoulder (principal); R93.6 Abnormal findings on diagnostic imaging of limbs; M19.012 Primary osteoarthritis, left shoulder ==

== ENCOUNTER 2021-12-30 17:01 | Emergency (ER) | payer MEDICARE, MEDICAID ==
[~2021-12-30] VITALS: Ht 152.4 cm; Wt 60.7 kg
[2021-12-30 17:02] VITALS: BP 153/67
[2021-12-30] MEDS ORDERED: diphenhydrAMINE 50MG/ML VIAL (J1200) IM ONE (18:10)
[2021-12-30] MEDS ORDERED: diphenhydrAMINE 50MG/ML VIAL (J1200) IM STA (18:18)
[2021-12-30] MEDS ORDERED: FAMOTIDINE 20 MG TAB PO ONE (19:10)
== END 2021-12-30 19:30 | disposition home or self-care (01) ==
LOC: M ED 17:01
DX: S40.861A Insect bite (nonvenomous) of right upper arm, initial encounter (principal); W57.XXXA Bitten or stung by nonvenomous insect and other nonvenomous arthropods, initial encounter; Y92.89 Other specified places as the place of occurrence of the external cause; Z91.030 Bee allergy status; E11.9 Type 2 diabetes mellitus without complications; I10 Essential (primary) hypertension; E03.9 Hypothyroidism, unspecified; Z88.0 Allergy status to penicillin; Z88.5 Allergy status to narcotic agent; Z91.040 Latex allergy status; Z79.899 Other long term (current) drug therapy; Z79.890 Hormone replacement therapy; Z79.4 Long term (current) use of insulin; Z79.01 Long term (current) use of anticoagulants
CPT/HCPCS: 96372; 99283; J1200

== ENCOUNTER → 2022-02-07 | Outpatient (CLI) | payer MEDICARE, MEDICAID ==
[2022-02-07 14:43] LABS: FREE T4 1.39 NG/DL (0.76-1.46); THYROID STIMULATING HORMONE 2.37 uIU/ML (0.358-3.740)
== END ==
LOC: M PLALAB 11:00
PROVIDERS: ATTEND Family Medicine
DX: E03.9 Hypothyroidism, unspecified (principal)

== ENCOUNTER → 2022-08-20 | Outpatient (CLI) | payer MEDICARE, MEDICAID ==
[2022-08-20 13:16] LABS: BLOOD UREA NITROGEN 17 MG/DL (9-23); CREATININE FOR GFR 0.71 MG/DL (0.55-1.30); GLOMERULAR FILTRATION RATE > 60.0 (>39)
== END ==
LOC: M LAB 11:38
PROVIDERS: ATTEND Physician Assistant
DX: I65.23 Occlusion and stenosis of bilateral carotid arteries (principal)

== ENCOUNTER → 2022-08-27 | Outpatient (CLI) | payer MEDICARE, MEDICAID ==
[~2022-08-27] MED LIST changes: +ISOVUE-370 76% 100ML VIAL As Ordered ONE
== END ==
LOC: M RAD 09:34
PROVIDERS: ATTEND Physician Assistant
DX: I65.23 Occlusion and stenosis of bilateral carotid arteries (principal)
CPT/HCPCS: 70496; 70498; Q9967

== ENCOUNTER → 2022-11-03 | Outpatient (CLI) | payer MEDICARE, MEDICAID ==
[~2022-11-03] MED LIST changes: -ISOVUE-370 76% 100ML VIAL As Ordered ONE
== END ==
LOC: M RAD 07:59
PROVIDERS: ATTEND Family Medicine
DX: F17.210 Nicotine dependence, cigarettes, uncomplicated (principal)

== ENCOUNTER → 2023-09-24 | Outpatient (CLI) | payer MEDICARE, MEDICAID ==
[~2023-09-24] MED LIST changes: -ROSU40TA4 PO; +ROSU40TA63 PO
== END ==
LOC: M RAD 17:17
PROVIDERS: ATTEND Family Medicine
DX: Z87.891 Personal history of nicotine dependence (principal)

== ENCOUNTER → 2023-10-08 | Outpatient (CLI) | payer MEDICARE, MEDICAID ==
[2023-10-08 10:02] LABS: HEMATOCRIT 35.9 % (36.0-47.0); HEMOGLOBIN 11.9 g/dl (12.0-15.5); MEAN CORPUSCULAR HGB CONC 33.1 g/dl (32.0-36.5); MEAN CORPUSCULAR VOLUME 96.5 fl (80.0-96.0); PLATELET COUNT, AUTOMATED 250 10^3/uL (150-450); RED BLOOD COUNT 3.72 10^6/uL (4.00-5.40); WHITE BLOOD COUNT 11.9 10^3/uL (4.0-10.0)
[2023-10-08 10:17] LABS: HEMOGLOBIN A1c 8.6 % (4.0-6.0)
[2023-10-08 10:35] LABS: CREATININE, URINE 64.9 MG/DL; MAU/CREAT RATIO 9.2 MCG/MG (0.0-30.0)
[2023-10-08 10:38] LABS: ALBUMIN 3.4 G/DL (3.2-5.2); ALKALINE PHOSPHATASE 89 U/L (46-116); ALT/SGPT 46 U/L (7.0-40); AST/SGOT 23 U/L (<34); BILIRUBIN,TOTAL 0.5 MG/DL (0.3-1.2); BLOOD UREA NITROGEN 19 MG/DL (9-23); CALCIUM LEVEL 8.9 MG/DL (8.3-10.6); CARBON DIOXIDE LEVEL 26 MMOL/L (20-31); CHLORIDE LEVEL 106 MMOL/L (98-107); CHOLESTEROL LEVEL 110 MG/DL (<200); CHOLESTEROL RISK RATIO 2.06 (<5); CREATININE FOR GFR 0.79 MG/DL (0.55-1.30); GLOMERULAR FILTRATION RATE > 60.0 (>39); GLUCOSE, FASTING 284 MG/DL (74-106); HDL CHOLESTEROL 53.2 MG/DL (>40); NON-HDL-C 56.8 MG/DL; POTASSIUM SERUM 4.4 MMOL/L (3.5-5.1); SODIUM LEVEL 135 MMOL/L (136-145); TOTAL PROTEIN 6.1 G/DL (5.7-8.2); TRIGLYCERIDES LEVEL 69 MG/DL (<150)
[2023-10-08 10:39] LABS: TOTAL 25(OH) VITAMIN D 39.3 NG/ML (20.0-100.0); VITAMIN B12 LEVEL 701 PG/ML (211-911)
[2023-10-08 10:40] LABS: FOLATE > 24.0 NG/ML (>5.4)
== END ==
LOC: M PLALAB 06:59
PROVIDERS: ATTEND Family Medicine
DX: I10 Essential (primary) hypertension (principal); E10.59 Type 1 diabetes mellitus with other circulatory complications; E55.9 Vitamin D deficiency, unspecified; E78.00 Pure hypercholesterolemia, unspecified; M81.0 Age-related osteoporosis without current pathological fracture; D51.8 Other vitamin B12 deficiency anemias

== ENCOUNTER → 2023-10-13 | Outpatient (CLI) | payer MEDICARE, MEDICAID | LOC: M WHC 12:45 | PROVIDERS: ATTEND Surgery Vascular Surgery | DX: I65.23 Occlusion and stenosis of bilateral carotid arteries (principal) ==

== ENCOUNTER → 2024-02-10 | Outpatient (CLI) | payer MEDICARE, MEDICAID ==
[~2024-02-10] MED LIST changes: -ROSU40TA63 PO; +ROSU40TA81 PO
== END ==
LOC: M RAD 10:49
PROVIDERS: ATTEND Family Medicine
DX: Z12.2 Encounter for screening for malignant neoplasm of respiratory organs (principal); Z87.891 Personal history of nicotine dependence; J84.10 Pulmonary fibrosis, unspecified; I70.0 Atherosclerosis of aorta; I25.10 Atherosclerotic heart disease of native coronary artery without angina pectoris; J43.9 Emphysema, unspecified

== ENCOUNTER → 2024-09-26 | Outpatient (CLI) | payer MEDICARE, MEDICAID ==
[2024-09-26 11:20] LABS: HEMATOCRIT 36.3 % (36.0-47.0); HEMOGLOBIN 11.9 g/dl (12.0-15.5); MEAN CORPUSCULAR HGB CONC 32.8 g/dl (32.0-36.5); MEAN CORPUSCULAR VOLUME 97.6 fl (80.0-96.0); PLATELET COUNT, AUTOMATED 328 10^3/uL (150-450); RED BLOOD COUNT 3.72 10^6/uL (4.00-5.40); WHITE BLOOD COUNT 9.2 10^3/uL (4.0-10.0)
[2024-09-26 11:39] LABS: MAU/CREAT RATIO 6.2 MCG/MG (0.0-30.0)
[2024-09-26 11:47] LABS: ALBUMIN 3.5 G/DL (3.2-5.2); ALKALINE PHOSPHATASE 74 U/L (35-104); ALT/SGPT 30 U/L (7.0-40); AST/SGOT 23 U/L (<34); BILIRUBIN,TOTAL 0.4 MG/DL (0.3-1.2); BLOOD UREA NITROGEN 24 MG/DL (9-23); CALCIUM LEVEL 9.4 MG/DL (8.3-10.6); CARBON DIOXIDE LEVEL 28 MMOL/L (20-31); CHLORIDE LEVEL 106 MMOL/L (98-107); CHOLESTEROL LEVEL 128 MG/DL (<200); GLOMERULAR FILTRATION RATE 67.1 (>39); GLUCOSE, FASTING 117 MG/DL (74-106); HDL CHOLESTEROL 58.1 MG/DL (>40); LDL CHOLESTEROL 56.5 MG/DL (<100); NON-HDL-C 69.9 MG/DL; POTASSIUM SERUM 4.5 MMOL/L (3.5-5.1); SODIUM LEVEL 141 MMOL/L (136-145); TOTAL PROTEIN 6.4 G/DL (5.7-8.2); TRIGLYCERIDES LEVEL 67 MG/DL (<150)
[2024-09-26 12:47] LABS: FOLATE > 24.0 NG/ML (>5.4)
[2024-09-26 12:49] LABS: THYROID STIMULATING HORMONE 1.146 uIU/ML (0.55-4.78); TOTAL 25(OH) VITAMIN D 47.4 NG/ML (20.0-100.0)
[2024-09-26 12:50] LABS: VITAMIN B12 LEVEL 590 PG/ML (211-911)
== END ==
LOC: M PLALAB 08:22
PROVIDERS: ATTEND Family Medicine
DX: D51.8 Other vitamin B12 deficiency anemias (principal); E03.9 Hypothyroidism, unspecified; E10.59 Type 1 diabetes mellitus with other circulatory complications; E55.9 Vitamin D deficiency, unspecified

== ENCOUNTER → 2024-12-02 | Outpatient (CLI) | payer MEDICARE, MEDICAID | LOC: M WHC 08:49 | PROVIDERS: ATTEND Family Medicine | DX: Z12.31 Encounter for screening mammogram for malignant neoplasm of breast (principal); R92.313 Mammographic fatty tissue density, bilateral breasts ==